=== PATIENT | female | born 1935 | race Caucasian/White ===

== ENCOUNTER → 2018-08-29 10:10 | Outpatient (CLI) | payer MEDICARE, OTHER, SELFPAY | PROVIDERS: PCP Internal Medicine; Visit Provider Internal Medicine | DX: M81.0 Age-related osteoporosis without current pathological fracture (principal); Z78.0 Asymptomatic menopausal state; S32.10XD Unspecified fracture of sacrum, subsequent encounter for fracture with routine healing; Z85.3 Personal history of malignant neoplasm of breast | CPT/HCPCS: 77080 ==

== ENCOUNTER → 2018-11-01 11:13 | Outpatient (CLI) | payer MEDICARE, OTHER, SELFPAY ==
[2018-11-01 12:08] LABS: BUN Creatinine Ratio 33.3 (6-22); Blood Urea Nitrogen 20 mg/dL (7-17); Estimated Glomerular Filt Rate > 60.0 mL/min (>60)
== END ==
PROVIDERS: PCP Internal Medicine; Visit Provider Internal Medicine
DX: M81.0 Age-related osteoporosis without current pathological fracture (principal)
CPT/HCPCS: 36415; 82565; 84520

== ENCOUNTER → 2018-11-02 09:50 | Oncology outpatient (ONC) | payer MEDICARE, OTHER, SELFPAY ==
[2018-11-02 10:30] VITALS: BP 120/55; RESP 18; TEMP 36.7; O2SAT 99
[2018-11-02] MEDS: ZOLEDRONIC ACID 5 MG in SODIUM CHLORIDE 0.9% 100 ML 318.75 ML IV (10:49)
--- NOTE | 2018-11-02 11:36 | PC.NURSE ---
Pt seen in clinic for Reclast infusion. 1xSBA from wheelchair to recliner. A&0x3. Denies chest pain and SOB. Denies N/V. Denies numbness and tingling to extremitiesx3. Speech clear. Pt has history of arthritic pain to UE's and shoulders, controlled with pain meds per pt. Daughter at chair side. Scattered bruising noted to DILCIA's. Pt tolerated infusion w/o incident.
== END ==
PROVIDERS: PCP Internal Medicine; Visit Provider Internal Medicine
DX: M81.0 Age-related osteoporosis without current pathological fracture (principal)
CPT/HCPCS: 96374; J2704; J3010; J3489

== ENCOUNTER → 2019-12-25 10:43 | Outpatient (CLI) | payer MEDICARE, OTHER, SELFPAY ==
[2019-12-25 11:16] VITALS: BP 134/65; PULSE 74; RESP 16; TEMP 36.8; O2SAT 95
[2019-12-25] MEDS: ZOLEDRONIC ACID 5 MG in SODIUM CHLORIDE 0.9% 100 ML 318.75 ML IV (11:48)
== END ==
PROVIDERS: PCP Internal Medicine; Referring Provider Internal Medicine; Visit Provider Internal Medicine
DX: M81.0 Age-related osteoporosis without current pathological fracture (principal)
CPT/HCPCS: 96365; J3489

== ENCOUNTER → 2020-11-19 10:27 | Outpatient (CLI) | payer MEDICARE, OTHER, SELFPAY | PROVIDERS: PCP Internal Medicine; Referring Provider Internal Medicine; Visit Provider Internal Medicine | DX: M81.0 Age-related osteoporosis without current pathological fracture (principal); Z85.3 Personal history of malignant neoplasm of breast; Z78.0 Asymptomatic menopausal state; Z91.81 History of falling | CPT/HCPCS: 77080 ==

== ENCOUNTER → 2021-02-04 12:56 | Outpatient (CLI) | payer MEDICARE, OTHER, SELFPAY | PROVIDERS: Family Provider Internal Medicine; PCP Internal Medicine; Referring Provider Internal Medicine; Visit Provider Family Medicine | DX: L89.153 Pressure ulcer of sacral region, stage 3 (principal); L03.317 Cellulitis of buttock; Z74.09 Other reduced mobility | CPT/HCPCS: 11042; 87070; 87075; 87077; 87186; 87205; 99204; 99213 ==

== ENCOUNTER → 2021-02-04 14:59 | Outpatient (CLI) | payer MEDICARE, OTHER, SELFPAY ==
[2021-02-04 16:49] LABS: BUN Creatinine Ratio 31.1 (6-22); Blood Urea Nitrogen 19 mg/dL (7-17); Calcium 9.4 mg/dL (8.4-10.2); Carbon Dioxide 30 mmol/L (22-32); Chloride 97 mmol/L (98-107); Estimated Glomerular Filt Rate > 60.0 mL/min (>60); Glucose 94 mg/dL (80-110); HEMOLYSIS < 15 (0-50); Potassium 4.3 mmol/L (3.4-5.1); Sodium 135 mmol/L (137-145)
== END ==
PROVIDERS: Family Provider Internal Medicine; PCP Internal Medicine; Referring Provider Internal Medicine; Visit Provider Internal Medicine
DX: I50.31 Acute diastolic (congestive) heart failure (principal)
CPT/HCPCS: 36415; 80048

== ENCOUNTER → 2021-02-11 15:03 | Outpatient (CLI) | payer MEDICARE, OTHER, SELFPAY | PROVIDERS: Family Provider Internal Medicine; PCP Internal Medicine; Referring Provider Internal Medicine; Visit Provider Nurse Practitioner Family | DX: L89.150 Pressure ulcer of sacral region, unstageable (principal); L03.317 Cellulitis of buttock; Z74.09 Other reduced mobility | CPT/HCPCS: 99213; 99214 ==

== ENCOUNTER → 2021-02-16 15:56 | Outpatient (CLI) | payer MEDICARE, OTHER, SELFPAY ==
--- NOTE | 2021-02-16 16:00 | DI.RAD.S_ITS ---
PROCEDURE: XR CHEST 2V INDICATIONS: CHRONIC HEART FAILURE TECHNIQUE: 2 views of the chest were acquired. COMPARISON: [facility], , CHEST 1 VIEW, 10/21/2017, 14:00. [facility], , CHEST 2 VIEW, 01/17/2013, 18:52. FINDINGS: Surgical changes and devices: Pacemaking device and dual chamber leads, multiple surgical clips over the upper left chest wall.. Lungs and pleura: Lungs are abnormal, with pulmonary hyperexpansion, bilateral pleural effusions, alveolar infiltration suggestive of cardiogenic pulmonary edema, and no visualized mass.. No pleural effusions or pneumothorax. Mediastinum: Mediastinal contours are normal. Heart size is globally enlarged, moderately.. Bones and chest wall: No suspicious bony abnormalities. Soft tissues appear unremarkable. IMPRESSION: COPD, CHF, subpulmonic bilateral moderate pleural effusions. No definite mass. Dual chamber cardiac pacemaking device and what appears to be an expandable cardiac valve annulus. These all were previously present 10/21/17. Dictated by: Naseem Lay M.D. on 02/16/2021 at 17:20 Approved by: Naseem Lay M.D. on 02/16/2021 at 17:22
== END ==
PROVIDERS: Family Provider Internal Medicine; PCP Internal Medicine; Referring Provider Internal Medicine; Visit Provider Internal Medicine
DX: I50.32 Chronic diastolic (congestive) heart failure (principal); J44.9 Chronic obstructive pulmonary disease, unspecified; J90 Pleural effusion, not elsewhere classified; Z95.0 Presence of cardiac pacemaker
CPT/HCPCS: 71046; 80048; 83880; 85025

== ENCOUNTER → 2021-02-16 19:16 | Outpatient (ROUT) | payer MEDICARE, OTHER, SELFPAY ==
[2021-02-16 19:35] LABS: Add Manual Diff / Slide Review NO; Basophils Absolute Auto 100 /uL (0-100); Basophils Percent Auto 0.8 % (0-2); Eosinophils Absolute Auto 0 /uL (0-450); Eosinophils Percent Auto 0.4 % (2-4); Hematocrit 32.2 % (36-46); Hemoglobin 10.4 g/dL (12.0-16.0); Lymphocytes Absolute Auto 800 /uL (1100-4500); Lymphocytes Percent Auto 8.6 % (25-40); Mean Corpuscular HGB Conc 32.2 % (30-36); Mean Corpuscular Hemoglobin 26.4 PG (26-34); Monocytes Absolute Auto 500 /uL (0-900); Monocytes Percent Auto 5.5 % (3-14); Neutrophils Absolute Auto 7800 /uL (1500-7000); Neutrophils Percent Auto 84.7 % (50-75); Platelet Count 269 X10^3/uL (150-400); Red Blood Cell Count 3.93 X10^6/uL (4.0-5.2); Red Cell Distribution Width 17.7 % (11.6-14.8); White Blood Cell Count 9.2 X10^3/uL (4.5-11.0)
[2021-02-16 19:50] LABS: BUN Creatinine Ratio 38.1 (6-22); Blood Urea Nitrogen 24 mg/dL (7-17); Calcium 9.6 mg/dL (8.4-10.2); Carbon Dioxide 30 mmol/L (22-32); Chloride 96 mmol/L (98-107); Estimated Glomerular Filt Rate > 60.0 mL/min (>60); Glucose 104 mg/dL (80-110); HEMOLYSIS 37 (0-50); Potassium 4.4 mmol/L (3.4-5.1); Sodium 134 mmol/L (137-145)
[2021-02-16 19:55] LABS: NT-proBNP (BNP-Adult 18+) 18800 pg/mL (<450)
== END ==
PROVIDERS: Family Provider Internal Medicine; PCP Internal Medicine; Visit Provider Internal Medicine
DX: I50.32 Chronic diastolic (congestive) heart failure (principal)
CPT/HCPCS: 80048; 83880; 85025

== ENCOUNTER → 2021-02-18 15:07 | Outpatient (CLI) | payer MEDICARE, OTHER, SELFPAY ==
[2021-02-18 15:34] LABS: COVID19 -Nasal RAPID Negative (Negative)
== END ==
PROVIDERS: Family Provider Internal Medicine; PCP Internal Medicine; Visit Provider Specialist
DX: L89.314 Pressure ulcer of right buttock, stage 4 (principal); Z20.822 Contact with and (suspected) exposure to COVID-19
CPT/HCPCS: 87635; 99214

== ENCOUNTER 2021-02-19 13:29 | Day surgery (SDC) | payer MEDICARE, OTHER, SELFPAY ==
[2021-02-19] VITALS (9 sets, daily range): BP systolic 92–120; BP diastolic 36–57; PULSE 69–78; RESP 10–94; TEMP 36.2–37.1; O2SAT 14–98; BMI 19.8
--- NOTE | 2021-02-19 14:31 | SUR.PREOP ---
Pt with O2 sat 79-85% on RA on admit. No SOB. States she has O2 3L NC at home at night that she has been wearing during the day due to low O2. Placed on 3L NC O2 and O2 sat up to 98%.
[2021-02-19] MEDS: LACTATED RINGERS 1,000 ML 42 ML IV (14:53)
--- NOTE | 2021-02-19 15:07 | SUR.PREOP ---
Dr Malik called and notified that patient took her Eliquist last night. No new orders.
--- NOTE | 2021-02-19 15:37 | PM.PREOP ---
Pre-operative Note COVID-19 COVID-19 status: Negative Result date/Date tested (Pos, Neg/Pending): 02/18/21 Interval Note History & Physical reviewed/Exam performed by Physician: Yes Changes to H&P: Yes H&P completed within 30 days and has changed as indicated here:: Patient took her Eliquis last night despite being instructed not to. It should not interfere with this minor procedure.
--- NOTE | 2021-02-19 16:13 | SUR.OPER ---
Left Lateral on padded OR bed, head on pillow, bottom leg bent with gel pad under knee to foot, upper leg straight and supported with pillows. Upper arm supported by pillows and secured over bottom arm to padded arm board. Gel pad also under left arm, Safety belt at upper torso, tape over blanket at lower legs.
[2021-02-19] MEDS: BUPIVACAINE 0.5% (PF) VIAL 30 ML INJ (16:20)
--- NOTE | 2021-02-19 16:36 | PM.OP.1 ---
Operative Date/Time/Diagnoses Date of procedure: 02/19/21 Time of procedure: 16:37 Pre-op diagnosis: Decubitus right buttock Post-op diagnosis: same (Decubitus extends up to nearly the sacrum. Measures 5 x 4 cm and included skin subcutaneous fat muscle fascia and small amount of muscle.) Procedure & Clinicians Procedure: Debridement of decubitus ulcer Same procedure as scheduled: Yes Indications: Patient developed a decubitus ulcer at home. She is brought in for surgical debridement. Surgeon: Marcos Malik Click Yes if Unassisted: Yes Anesthesia Type: MAC +/- Operative Notes Findings: Debrided necrotic tissue down to healthy viable looking tissue. Prosthetic devices, grafts, tissues, transplants, or devices: None Estimated Blood Loss (mL): 5 Blood products transfused: none Procedure in detail: Patient was placed left lateral decubitus position with appropriate padding and was taped into place. She underwent monitored anesthesia care. After prepping and draping local anesthetic was infiltrated in field block fashion around the wound. The wound was then debrided with a knife I cut out skin subcutaneous fat and portions of fashion muscle there were necrotic. Cautery was used to control bleeding. A portion of a 4 by for soaked in 0.5% Marcaine was placed in the wound and covered with a foam dressing. Patient was taken to the recovery area in good condition. Complications: none Post-operative Condition: stable Disposition: PACU
== END 2021-02-19 17:27 | disposition home or self-care (01) ==
PROVIDERS: Family Provider Internal Medicine; PCP Internal Medicine; Referring Provider Specialist; Visit Provider Specialist
PROC: (CPT 11043; principal; 2021-02-19 16:00)
DX: L89.314 Pressure ulcer of right buttock, stage 4 (principal); Z95.0 Presence of cardiac pacemaker; I25.10 Atherosclerotic heart disease of native coronary artery without angina pectoris; I11.0 Hypertensive heart disease with heart failure; I50.30 Unspecified diastolic (congestive) heart failure; J90 Pleural effusion, not elsewhere classified
CPT/HCPCS: 11043; J2704; J3010

== ENCOUNTER → 2021-02-25 11:58 | Outpatient (CLI) | payer MEDICARE, OTHER, SELFPAY | PROVIDERS: Family Provider Internal Medicine; PCP Internal Medicine; Referring Provider Internal Medicine; Visit Provider Family Medicine | DX: L89.154 Pressure ulcer of sacral region, stage 4 (principal); L08.9 Local infection of the skin and subcutaneous tissue, unspecified; Z74.09 Other reduced mobility; E46 Unspecified protein-calorie malnutrition | CPT/HCPCS: 11043; 11046; 87070; 87075; 87076; 87077; 87147; 87186; 87205; 99214 ==

== ENCOUNTER → 2021-02-26 13:08 | Outpatient (ROUT) | payer MEDICARE, OTHER, SELFPAY ==
[2021-02-26 13:21] LABS: BUN Creatinine Ratio 38.3 (6-22); Blood Urea Nitrogen 36 mg/dL (7-17); Calcium 9.8 mg/dL (8.4-10.2); Carbon Dioxide 35 mmol/L (22-32); Chloride 89 mmol/L (98-107); Estimated Glomerular Filt Rate 56.6 mL/min (>60); Glucose 109 mg/dL (80-110); HEMOLYSIS < 15 (0-50); Potassium 3.7 mmol/L (3.4-5.1); Sodium 132 mmol/L (137-145)
[2021-02-26 13:30] LABS: NT-proBNP (BNP-Adult 18+) 27800 pg/mL (<450)
== END ==
PROVIDERS: Family Provider Internal Medicine; PCP Internal Medicine; Visit Provider Internal Medicine
DX: I50.31 Acute diastolic (congestive) heart failure (principal)
CPT/HCPCS: 80048; 83880

== ENCOUNTER 2021-03-01 15:05 | Inpatient (IN) | payer MEDICARE, OTHER, SELFPAY ==
[2021-03-01] VITALS (45 sets, daily range): BP systolic 73–108; BP diastolic 38–55; PULSE 69–77; RESP 10–32; TEMP 36.3–36.4; O2SAT 82–99; BMI 19.7
--- NOTE | 2021-03-01 15:26 | ED.WOUNDLAC ---
HPI - Wound/Laceration General Chief Complaint: Wound/Laceration Stated Complaint: INFECTED BED SORE Time Seen by Provider: 03/01/21 15:15 Source: family Mode of arrival: Wheelchair Limitations: no limitations History of Present Illness HPI narrative: Patient is an 85-year-old female. On February 19 patient had a surgical debridement of a sacral wound from an infected decubitus ulcer. Was not placed on antibiotics. Was sent home with wet-to-dry dressings. Has followed up with wound care since that time. A couple days after the surgery the patient and her daughter stated that the wound seemed to worsen. There was more pain. No fevers. Had a foul-smelling discharge. Wound care evaluated the patient in the was a small amount of debridement done at that time. Cultures were obtained. She was started on Levaquin. Wound cultures returned today showing multiple different pathogens. The Enterobacter and Staph aureus were both susceptible to Levaquin. There was also a Clostridium and peptoniphilus that did not have sensitivities performed. Patient was contacted by the wound care clinic informed come to the emergency department for further evaluation. Related Data Home Medications Medication Instructions Recorded Confirmed duloxetine 20 mg PO QDAY #0 10/20/17 02/19/21 sotalol [Betapace] 120 mg PO BID #0 10/20/17 02/19/21 apixaban 5 mg tablet 5 mg PO BID 02/18/21 02/19/21 aspirin 81 mg tablet,delayed 81 mg PO DAILY 02/18/21 02/19/21 release gabapentin 300 mg capsule 300 mg PO BID 02/18/21 02/19/21 torsemide 10 mg tablet 10 mg PO DAILY 02/18/21 02/19/21 oxycodone 10 mg PO BID 02/19/21 02/19/21 pantoprazole 40 mg PO DAILY 02/19/21 02/19/21 Previous Rx's Medication Instructions Recorded oxycodone 5 mg PO QIDP PRN #30 tab 10/25/17 Allergies Allergy/AdvReac Type Severity Reaction Status Date / Time No Known Drug Allergies Allergy Verified 03/01/21 15:22 Review of Systems Constitutional Constitutional: Denies fever(s) Musculoskeletal Comments: Sacral pain over the area of the ulcer Integumentary/Breasts Comments: Right sacral decubitus ulcer that is draining material Hematologic/Lymphatic On Anticoagulants: Yes Allergic/Immunologic Allergic/Immunologic: Denies urticaria Patient History Medical History Arthritis Heart failure Surgical History History of hip replacement Hx of hysterectomy Hx of mastectomy Social History marital status: unknown household members: none occupational status: previously employed Smoking Status: Never smoker alcohol intake: current Smoking Status: Never smoker alcohol intake frequency: 0-2 drinks per day Substance Use Type: does not use Exam Initial Vital Signs Initial Vital Signs: Vital Signs Temperature 97.6 F 03/01/21 15:17 Pulse Rate 75 03/01/21 15:17 Respiratory Rate 23 03/01/21 15:17 Blood Pressure 96/55 L 03/01/21 15:17 Pulse Oximetry 89 L 03/01/21 15:17 Const General: cooperative and comfortable Limitations: mental status not altered HENMT Head: normal to inspection and normocephalic Mouth: No moist mucous membranes Resp Effort & Inspection: normal respiratory effort Cardio Rate: regular rate Rhythm: regular rhythm GI Palpation: soft Neuro General: patient alert, patient awake and patient oriented x3 Cognition: normal cognition Speech: speech normal Extrem General: capillary refill normal Psych Appearance: grossly normal and well kempt Course Orders Ordered: ED Orders 03/01/21 15:11 Lactate (Lactic Acid) Stat RT Consult Eval and Treat Now 03/01/21 15:36 Consult to General Surgery Stat 03/01/21 15:45 Complete Blood Count AUTO DIFF Stat Comprehensive Metabolic Panel Stat Lipase Stat Partial Thromboplastin Time Stat Procalcitonin Stat Prothrombin Time INR Stat 03/01/21 15:59 Blood Culture Stat 03/01/21 16:20 COVID19 - ADMIT ([employer] swab/PCR) Stat 03/01/21 16:34 EKG-12 Lead Stat Cefazolin Sodium (Cefazolin 1 Gm Vial) 2 gm IV Q12H [facility] Sodium Chloride (Normal Saline 0.9%) 1,000 mls @ 125 mls/hr IV BOLUS ONE Stop: 03/01/21 23:16 Last Infusion: 03/01/21 17:44 Dose: 0 mls/hr Documented by: Infusion: 03/01/21 17:09 Dose: 125 mls/hr Documented by: Admin: 03/01/21 16:45 Dose: 1,000 mls/hr Documented by: BC Piperacillin Sod/Tazobactam (Sod 3.375 gm/ Sodium Chloride) 100 mls @ 25 mls/hr IV Q8H [facility] Clindamycin Phosphate (Cleocin) 900 mg in 50 mls @ 50 mls/hr IV Q8H [facility] Discontinued Medications Cefazolin Sodium (Cefazolin 1 Gm Vial) 2 gm IV Q8H [facility] Last Admin: 03/01/21 18:20 Dose: Not Given Documented by: BC Metronidazole (Flagyl) 500 mg in 100 mls @ 100 mls/hr IV NOW ONE Stop: 03/01/21 17:11 Last Infusion: 03/01/21 17:44 Dose: 0 mls/hr Documented by: Admin: 03/01/21 16:32 Dose: 100 mls/hr Documented by: SHANTEL Clindamycin Phosphate (Cleocin) 900 mg in 50 mls @ 50 mls/hr IV NOW ONE Stop: 03/01/21 17:12 Last Infusion: 03/01/21 17:44 Dose: 0 mls/hr Documented by: Admin: 03/01/21 16:32 Dose: 50 mls/hr Documented by: SHANTEL Clindamycin Phosphate (Cleocin) 900 mg in 50 mls @ 50 mls/hr IV Q8H [facility] Last Admin: 03/01/21 18:20 Dose: Not Given Documented by: BC Vital Signs Vital signs: Vital Signs - 8 hr 03/01/21 15:17 03/01/21 15:35 03/01/21 15:40 Temperature 97.6 F Pulse Rate 75 69 70 Respiratory Rate 23 25 H 20 Blood Pressure 96/55 L Pulse Oximetry 89 L 89 L 86 L 03/01/21 15:50 03/01/21 16:00 03/01/21 16:10 Temperature Pulse Rate 69 69 72 Respiratory Rate 17 26 H 17 Blood Pressure 83/47 L Pulse Oximetry 86 L 91 85 L 03/01/21 16:20 03/01/21 16:29 03/01/21 16:30 Temperature Pulse Rate 69 70 70 Respiratory Rate 12 17 17 Blood Pressure 86/51 L 77/41 L Pulse Oximetry 91 92 93 MDM - Wound/Laceration Medical Records Attestation: I reviewed the patient's medical records. Lab Data Attestation: I reviewed the patient's lab results. Result diagrams: 03/01/21 15:45 03/01/21 15:45 Labs: Lab Results 03/01/21 03/01/21 03/01/21 Range/Units 15:11 15:45 15:45 WBC 9.1 (4.5-11.0) X10^3/uL RBC 3.92 L (4.0-5.2) X10^6/uL Hgb 10.0 L (12.0-16.0) g/dL Hct 31.4 L (36-46) % MCV 80.2 (80-100) fL MCH 25.7 L (26-34) PG MCHC 32.0 (30-36) % RDW 18.2 H (11.6-14.8) % Plt Count 222 (150-400) X10^3/uL Neut % (Auto) 86.6 H (50-75) % Lymph % (Auto) 6.8 L (25-40) % [place] % (Auto) 6.0 (3-14) % Eos % (Auto) 0.2 L (2-4) % Baso % (Auto) 0.4 (0-2) % Neut # (Auto) 7900 H (7602-3509) /uL Lymph # (Auto) 600 L (6405-1325) /uL [place] # (Auto) 600 (0-900) /uL Eos # (Auto) 0 (0-450) /uL Baso # (Auto) 0 (0-100) /uL PT 31.5 H (10.1-12.7) SECONDS INR 2.7 H (0.9-1.3) APTT 37 H (26.4-36.2) SECONDS Sodium (137-145) mmol/L Potassium (3.4-5.1) mmol/L Chloride (98-107) mmol/L Carbon Dioxide (22-32) mmol/L BUN (7-17) mg/dL Creatinine (0.52-1.04) mg/dL Estimated GFR (>60) mL/min BUN/Creatinine Ratio (6-22) Glucose (80-110) mg/dL Lactate 1.5 (0.7-2.1) mmol/L Calcium (8.4-10.2) mg/dL Total Bilirubin (0.2-1.3) mg/dL AST (14-36) IU/L ALT (<35) IU/L Alkaline Phosphatase (38-126) U/L Total Protein (6.3-8.2) g/dL Albumin (3.5-5.0) g/dL Globulin (1.7-4.1) g/dL Albumin/Globulin Ratio (1.0-2.8) Lipase (23-300) U/L Procalcitonin (<0.5) ng/mL SARS-CoV-2 (PCR) (Negative) 03/01/21 03/01/21 Range/Units 15:45 16:20 WBC (4.5-11.0) X10^3/uL RBC (4.0-5.2) X10^6/uL Hgb (12.0-16.0) g/dL Hct (36-46) % MCV (80-100) fL MCH (26-34) PG MCHC (30-36) % RDW (11.6-14.8) % Plt Count (150-400) X10^3/uL Neut % (Auto) (50-75) % Lymph % (Auto) (25-40) % [place] % (Auto) (3-14) % Eos % (Auto) (2-4) % Baso % (Auto) (0-2) % Neut # (Auto) (8334-0667) /uL Lymph # (Auto) (6135-2591) /uL [place] # (Auto) (0-900) /uL Eos # (Auto) (0-450) /uL Baso # (Auto) (0-100) /uL PT (10.1-12.7) SECONDS INR (0.9-1.3) APTT (26.4-36.2) SECONDS Sodium 129 L (137-145) mmol/L Potassium 4.5 (3.4-5.1) mmol/L Chloride 87 L (98-107) mmol/L Carbon Dioxide 35 H (22-32) mmol/L BUN 55 H (7-17) mg/dL Creatinine 1.86 H (0.52-1.04) mg/dL Estimated GFR 25.7 L (>60) mL/min BUN/Creatinine Ratio 29.6 H (6-22) Glucose 94 (80-110) mg/dL Lactate (0.7-2.1) mmol/L Calcium 9.5 (8.4-10.2) mg/dL Total Bilirubin 1.2 (0.2-1.3) mg/dL AST 65 H (14-36) IU/L ALT 36 H (<35) IU/L Alkaline Phosphatase 87 (38-126) U/L Total Protein 6.7 (6.3-8.2) g/dL Albumin 3.4 L (3.5-5.0) g/dL Globulin 3.3 (1.7-4.1) g/dL Albumin/Globulin Ratio 1.0 (1.0-2.8) Lipase 45 (23-300) U/L Procalcitonin 0.41 (<0.5) ng/mL SARS-CoV-2 (PCR) Negative (Negative) ECG Data Attestation: I personally reviewed and interpreted this ECG as follows: Prior ECG tracings: not available for review Interpretation: Paced rhythm Rate is 71 MDM Narrative Medical decision making narrative: Patient is alert oriented x3. GCS of 15. Is currently on Levaquin which should take care of some of the positive wound culture bacteria. Wound care recommended Victor Manuel Lang. Patient was seen by General surgery here in the emergency department and asked the patient be admitted by Internal Medicine for debridement tomorrow. Also discussed the case with Dr. Valdes with Internal Medicine who will admit for further evaluation. Patient did have some episodes of hypotension with a systolic blood pressure in the 70s and a mean arterial pressure around 60. Patient was not tachycardic. Does not have a leukocytosis but does have a left shift. She does have a bump in her creatinine. Her lactate is negative. Procalcitonin is negative. She is mentating fine. I suspect that her hypotension is more related to under resuscitation with fluids rather than a sepsis. She was given antibiotics. Blood cultures were obtained. We will admit for further evaluation and treatment. Discharge Plan Departure Patient Disposition: Admitted As Inpatient Clinical Impression: Decubitus ulcer, stage 4 with infection Admit Date/Time: 03/01/21 16:38 Admit Provider: Noah Valdes
[2021-03-01 15:52] LABS: Add Manual Diff / Slide Review NO; Basophils Absolute Auto 0 /uL (0-100); Basophils Percent Auto 0.4 % (0-2); Eosinophils Absolute Auto 0 /uL (0-450); Eosinophils Percent Auto 0.2 % (2-4); Hematocrit 31.4 % (36-46); Lymphocytes Absolute Auto 600 /uL (1100-4500); Lymphocytes Percent Auto 6.8 % (25-40); Mean Corpuscular Hemoglobin 25.7 PG (26-34); Mean Corpuscular Volume 80.2 fL (80-100); Monocytes Absolute Auto 600 /uL (0-900); Neutrophils Absolute Auto 7900 /uL (1500-7000); Neutrophils Percent Auto 86.6 % (50-75); Platelet Count 222 X10^3/uL (150-400); Red Blood Cell Count 3.92 X10^6/uL (4.0-5.2); Red Cell Distribution Width 18.2 % (11.6-14.8); White Blood Cell Count 9.1 X10^3/uL (4.5-11.0)
[2021-03-01 15:59] LABS: INR 2.7 (0.9-1.3); Prothrombin Time 31.5 SECONDS (10.1-12.7)
[2021-03-01 16:02] LABS: PTT Partial Thromboplastin Tim 37 SECONDS (26.4-36.2)
[2021-03-01 16:03] LABS: Alanine Aminotransferase 36 IU/L (<35); Albumin 3.4 g/dL (3.5-5.0); Alkaline Phosphatase 87 U/L (38-126); Aspartate Aminotransferase 65 IU/L (14-36); BUN Creatinine Ratio 29.6 (6-22); Bilirubin Total 1.2 mg/dL (0.2-1.3); Blood Urea Nitrogen 55 mg/dL (7-17); Calcium 9.5 mg/dL (8.4-10.2); Carbon Dioxide 35 mmol/L (22-32); Chloride 87 mmol/L (98-107); Estimated Glomerular Filt Rate 25.7 mL/min (>60); Globulin 3.3 g/dL (1.7-4.1); Glucose 94 mg/dL (80-110); HEMOLYSIS < 15 (0-50); Lipase 45 U/L (23-300); Potassium 4.5 mmol/L (3.4-5.1); Sodium 129 mmol/L (137-145); Total Protein 6.7 g/dL (6.3-8.2)
[2021-03-01 16:09] LABS: Lactate (Lactic Acid) 1.5 mmol/L (0.7-2.1)
[2021-03-01 16:20] LABS: Procalcitonin 0.41 ng/mL (<0.5)
[2021-03-01] MEDS: CLINDAMYCIN 900 MG/50 ML PIGGYBACK 50 MG IV ×2 (16:32→23:50)
[2021-03-01] MEDS: metroNIDAZOLE 500 MG/100 ML PIGGYBACK 100 MG IV (16:32)
[2021-03-01] MEDS: SODIUM CHLORIDE 0.9% 1,000 ML 1000 ML IV ×2 (16:45→22:45)
--- NOTE | 2021-03-01 16:50 | PM.CN ---
History of Present Illness Consult details Date Patient Seen: 03/01/21 Time Patient Seen: 19:02 Chief complaint: INFECTED BED SORE Narrative: 85-year-old female seen in the emergency room in consultation for a decubitus ulcer. Debridement of the decubitus ulcer was performed 02/19/2021. The wound was not progressing well following surgery. Cultures obtained 4 days ago but resulting today demonstrate multiple species including Clostridium, staph aureus and Enterobacter. She is admitted to the hospital today for IV antibiotic therapy and likely repeat debridement. Her buttock is uncomfortable but not frankly changed from her baseline. The operative note describes a 5 x 4 cm wound extending to the depth of the sacrum. At admission WBC 9, hematocrit 31 INR 2.7, sodium 129 creatinine 1.9 from baseline 0.6. Meds Home Medications and Allergies Home Medications Medication Instructions Recorded Confirmed Type duloxetine 20 mg PO QDAY #0 10/20/17 02/19/21 History sotalol [Betapace] 120 mg PO BID #0 10/20/17 02/19/21 History oxycodone 5 mg PO QIDP PRN #30 tab 10/25/17 02/19/21 Rx apixaban 5 mg tablet 5 mg PO BID 02/18/21 02/19/21 History aspirin 81 mg tablet,delayed 81 mg PO DAILY 02/18/21 02/19/21 History release gabapentin 300 mg capsule 300 mg PO BID 02/18/21 02/19/21 History torsemide 10 mg tablet 10 mg PO DAILY 02/18/21 02/19/21 History oxycodone 10 mg PO BID 02/19/21 02/19/21 History pantoprazole 40 mg PO DAILY 02/19/21 02/19/21 History Allergies Allergy/AdvReac Type Severity Reaction Status Date / Time No Known Drug Allergies Allergy Verified 03/01/21 15:22 Review of Systems Review of Systems ROS: Yes unobtainable due to mental status (Dementia) Exam Vital Signs (past 8 hours): - 03/01/21 15:17 Temperature 97.6 F Pulse Rate 75 Respiratory Rate 23 Blood Pressure 96/55 L Pulse Oximetry 89 L Oxygen Delivery Method Nasal Cannula Oxygen Flow Rate 3 Narrative Exam Narrative: GENERAL frail elderly female, no acute distress HEENT-no scleral icterus, hearing intact NECK-no JVD, trachea midline CVS- regular rate, mild peripheral edema RESP-unlabored respiratory effort, no audible wheezing GI-soft, nontender nondistended MSK-no cyanosis or clubbing, extremities without deformity SKIN-5 cm sacral pain wound extending to the depth of the sacrum. There is sloughing material within the base of the wound. Mild surrounding erythema no warmth NEURO-alert, no focal deficits PYSCH-Appropriate mood and affect Objective Labs Result Diagrams: 03/01/21 15:45 03/01/21 15:45 Labs: Laboratory Results - last 24 hr 03/01/21 03/01/21 03/01/21 15:11 15:45 15:45 WBC 9.1 RBC 3.92 L Hgb 10.0 L Hct 31.4 L MCV 80.2 MCH 25.7 L MCHC 32.0 RDW 18.2 H Plt Count 222 Neut % (Auto) 86.6 H Lymph % (Auto) 6.8 L [place] % (Auto) 6.0 Eos % (Auto) 0.2 L Baso % (Auto) 0.4 Neut # (Auto) 7900 H Lymph # (Auto) 600 L [place] # (Auto) 600 Eos # (Auto) 0 Baso # (Auto) 0 PT 31.5 H INR 2.7 H APTT 37 H Sodium Potassium Chloride Carbon Dioxide BUN Creatinine Estimated GFR BUN/Creatinine Ratio Glucose Lactate 1.5 Calcium Total Bilirubin AST ALT Alkaline Phosphatase Total Protein Albumin Globulin Albumin/Globulin Ratio Lipase Procalcitonin 03/01/21 15:45 WBC RBC Hgb Hct MCV MCH MCHC RDW Plt Count Neut % (Auto) Lymph % (Auto) [place] % (Auto) Eos % (Auto) Baso % (Auto) Neut # (Auto) Lymph # (Auto) [place] # (Auto) Eos # (Auto) Baso # (Auto) PT INR APTT Sodium 129 L Potassium 4.5 Chloride 87 L Carbon Dioxide 35 H BUN 55 H Creatinine 1.86 H Estimated GFR 25.7 L BUN/Creatinine Ratio 29.6 H Glucose 94 Lactate Calcium 9.5 Total Bilirubin 1.2 AST 65 H ALT 36 H Alkaline Phosphatase 87 Total Protein 6.7 Albumin 3.4 L Globulin 3.3 Albumin/Globulin Ratio 1.0 Lipase 45 Procalcitonin 0.41 Assessment & Plan Assessment & Plan narrative: 85F with an infected decubitus ulcer, no systemic toxicity. Cultures from 4 days ago demonstrate multiple species including clostridium, staph and Enterobacter. Very low suspicion for necrotizing fasciitis. -NPO -Antibiotics -hold Eliquis -Debridement of decubitus ulcer tomorrow 03/02 in OR
[2021-03-01 17:18] LABS: COVID19 - ADMIT (NP swab/PCR) Negative (Negative)
--- NOTE | 2021-03-01 17:48 | PC.NURSE ---
Patient remained hypotensive after one 500ml NS bolus. Verbal order recieved for additional 500ml NS bolus.
--- NOTE | 2021-03-01 19:08 | DI.ECHO.S_ITS ---
[place] [facility]---------+ [facility] +---------+ : : [address] : [place] : : : : [id number] : : : : Phone: [phone] Echocardiogram Report + + :Name: MONTRELL RAMAN Study Date: 03/02/2021 Height: 66 in : :[facility] ReadingLocation: Weight: 122 lb: : Gender: Female BSA: 1.6 m2 : :: 1935 Age: 85 yrs BP: 94/48 mmHg: :Reason For Study: CONGESTIVE HEART FAILURE : :Ordering Physician: ADEEL, : :TENA Performed By: Nahomi Rivas : :Referring: TENA DENIS : + + Interpretation Summary The left ventricle is normal in size and wall thickness. The ejection fraction is estimated to be 50-55%. Left ventricular function has slightly worsened compared to the previous exam. The right ventricle is mildly dilated. The right ventricular systolic function is normal. The right ventricular systolic pressure is estimated to be at least 67 mmHg based on an estimated right atrial pressure of 15 mm Hg. Compared to the prior echo exam, there has been an increase in the severity of pulmonary hypertension. There is a prosthetic aortic valve. The peak aortic velocity is 4.3 m/sec. The peak aortic velocity on the previous exam was 3.57 m/sec. There is mild to moderate aortic regurgitation. There is a moderate left-sided pleural effusion. Procedure: A two-dimensional transthoracic echocardiogram with color flow and Doppler was performed in limited views only to assess ejection fraction and aortic valve.. The study quality was technically adequate. Comparison is made with the echocardiogram of 12/18/2020. The heart rate ranged between 56- 72 bpm during the study. Left Ventricle: The left ventricle is normal in size and wall thickness. The ejection fraction is estimated to be 50-55%. Left ventricular function has slightly worsened compared to the previous exam. There are no focal wall motion abnormalities. Right Ventricle: The right ventricle is mildly dilated. The right ventricular systolic function is normal. Atria: The left atrium is moderately dilated. The right atrium is moderate to severely dilated. Aortic Valve: There is a prosthetic aortic valve. The peak aortic velocity is 4.3 m/sec. The peak aortic velocity on the previous exam was 3.57 m/sec. The aortic valve mean gradient is 34.1 mmHg. There is mild to moderate aortic regurgitation. Tricuspid Valve: The right ventricular systolic pressure is estimated to be at least 67 mmHg based on an estimated right atrial pressure of 15 mm Hg. Compared to the prior echo exam, there has been an increase in the severity of pulmonary hypertension. Great Vessels: The IVC is dilated (diameter is greater than 2.1 cm) and it collapses less than 50% with a sniff. This suggests a high right atrial pressure of 15 mm Hg. Pericardium/ Pleura There is no pericardial effusion. There is a moderate left-sided pleural effusion. MMode/2D Measurements & Calculations LVIDd: 5.0 cm LVOT diam: 1.9 cm LVIDs: 3.7 cm FS: 26.4 % IVSd: 0.79 cm LVPWd: 0.95 cm LV sinha. diameter/BSA (cm/m^2): 3.1 LV sys. diameter/BSA (cm/m^2): 2.3 LA A2 area: 22.3 cm2 RA long axis: 4.6 cm LA A4 area: 25.0 cm2 RA area: 20.2 cm2 LA length (vol): 6.2 cm RA vol: 76.2 ml LA vol: 76.9 ml RA : 47.0 ml/m2 LA vol index: 47.5 ml/m2 IVC diam: 2.6 cm RVD1 (basal): 4.0 cm TAPSE: 2.2 cm Doppler Measurements & Calculations Ao V2 max: 434.6 cm/sec LVOT Max Leland: 71.5 cm/sec Ao V2 mean: 341.7 cm/sec LV V1 max P.0 mmHg Ao max P.6 mmHg LV V1 VTI: 16.5 cm Ao mean P.4 mmHg OLIVIA(I,D): 0.48 cm2 Ao V2 VTI: 94.5 cm OLIVIA(V,D): 0.45 cm2 sev ratio: 0.17 OLIVIA indexed to BSA (cm^2/m^2): 0.30 TR max leland: 361.7 cm/sec SV(LVOT): 45.2 ml TR max P.3 mmHg Reading Physician:12:41 PM
[2021-03-01] MEDS: SODIUM CHLORIDE 0.9% 1,000 ML 125 ML IV (19:10)
[2021-03-01 19:29] LABS: HCO3 ABG 34 mmol/L (22-26); PCO2 ABG 47.1 mmHg (35-45); PO2 ABG 91 mmHg (80-100); pH ABG 7.46 (7.35-7.45)
[2021-03-01 19:30] LABS: Fractionated Inspired Oxygen 45; Oxygen Saturation ABG 97 % (95-100); TCO2 ABG 35 mmol/L (21-31)
[2021-03-01] MEDS: OXYCODONE IR 5 MG TABLET PO (20:31)
[2021-03-01] MEDS: PIPERACILLIN/TAZO 3.375 GM in SODIUM CHLORIDE 0.9% 100 ML 25 ML IV (20:33)
[2021-03-01] MEDS: CEFAZOLIN 1 GM VIAL 2 GM IV (20:55)
--- NOTE | 2021-03-01 21:20 | P.HP_ITS ---
History of Present Illness History of Present Illness Date Patient Seen: 03/01/21 Time Patient Seen: 17:20 Chief complaint: INFECTED BED SORE Narrative: Ms. Magaña is an 85W with PMH of CAD s/p stent, diastolic CHF, chronic left pleural effusion, atrial fibrillation s/p PPM, aortic valve stenosis s/p TAVR now with aortic insufficiency, chronic narcotic therapy, bilateral mastectomy and hysterectomy who is coming in with infected sarcal decubitus ulcer. She initially had surgical debridement of this wound on 01/20. She was not on antibiotics. She presented to wound care with worsening pain, draining from the wound and was started on antibiotics with levofloxacin four days ago. She had cultures drawn that showed eventually resulted with multiple bacteria so was notified to come to the hospital. She thinks that her wound since starting antibiotics has somwhat improved, but overall she feels like she lacks appetite and has been weaker than her baseline. In the ED workup was done, she was noted initially to be mildly hypotensive in the 90s, no tachycardia. Labs notable for a normal white count of 9.1 with 86.6 PMNs, lactate normal. She has been on oxygen chronically and was initially on 3L in the ED. She was given clindamycin and flagyl for her wound cultures. In the ED, she did have noted episodes of hypotension with blood pressure in the 70s, she required multiple fluid boluses and consideration was done to place a central line; however blood pressure improved to the 100s and she was mentating and this was not medically necessary. She did have increasing oxygen requirement up to 6L, but when arriving on the floor this was being attempted to be weaned down. Patient History Medical History Arthritis Heart failure Surgical History History of hip replacement Hx of hysterectomy Hx of mastectomy Family & Social History Social History: household members none Safety & Behavioral: Feels Safe in Current Yes Environment Been Physically Hurt or No Threatened By a Person Tobacco & Substance use: Smoking Status Never smoker alcohol intake current alcohol intake frequency 0-2 drinks per day Substance Use Type does not use Meds Home Medications and Allergies Home Medications Medication Instructions Recorded Confirmed Type duloxetine 20 mg PO QDAY #0 10/20/17 02/19/21 History sotalol [Betapace] 120 mg PO BID #0 10/20/17 02/19/21 History oxycodone 5 mg PO QIDP PRN #30 tab 10/25/17 02/19/21 Rx apixaban 5 mg tablet 5 mg PO BID 02/18/21 02/19/21 History aspirin 81 mg tablet,delayed 81 mg PO DAILY 02/18/21 02/19/21 History release gabapentin 300 mg capsule 300 mg PO BID 02/18/21 02/19/21 History torsemide 10 mg tablet 10 mg PO DAILY 02/18/21 02/19/21 History oxycodone 10 mg PO BID 02/19/21 02/19/21 History pantoprazole 40 mg PO DAILY 02/19/21 02/19/21 History Allergies Allergy/AdvReac Type Severity Reaction Status Date / Time No Known Drug Allergies Allergy Verified 03/01/21 15:22 Review of Systems Review of Systems Narrative: 14 systems reviewed and negative aside from what is noted in HPI Exam Vital Signs (past 8 hours): - 03/01/21 15:17 03/01/21 15:35 03/01/21 15:40 Temperature 97.6 F Pulse Rate 75 69 70 Respiratory Rate 23 25 H 20 Blood Pressure 96/55 L Pulse Oximetry 89 L 89 L 86 L 03/01/21 15:50 03/01/21 16:00 03/01/21 16:10 Temperature Pulse Rate 69 69 72 Respiratory Rate 17 26 H 17 Blood Pressure 83/47 L Pulse Oximetry 86 L 91 85 L 03/01/21 16:20 03/01/21 16:29 03/01/21 16:30 Temperature Pulse Rate 69 70 70 Respiratory Rate 12 17 17 Blood Pressure 86/51 L 77/41 L Pulse Oximetry 91 92 93 03/01/21 16:40 03/01/21 16:50 03/01/21 17:00 Temperature Pulse Rate 71 69 69 Respiratory Rate 17 13 18 Blood Pressure 81/46 L 73/40 L Pulse Oximetry 91 95 94 03/01/21 17:05 03/01/21 17:10 03/01/21 17:20 Temperature Pulse Rate 69 71 69 Respiratory Rate 16 17 14 Blood Pressure 74/46 L 78/49 L 77/46 L Pulse Oximetry 94 91 91 03/01/21 17:30 03/01/21 17:40 03/01/21 17:41 Temperature Pulse Rate 69 69 69 Respiratory Rate 20 25 H 21 Blood Pressure 79/49 L 95/54 L Pulse Oximetry 91 93 93 03/01/21 17:50 03/01/21 18:00 03/01/21 18:10 Temperature Pulse Rate 72 77 71 Respiratory Rate 18 32 H 20 Blood Pressure 86/47 L 78/43 L 75/49 L Pulse Oximetry 89 L 89 L 83 L 03/01/21 18:20 03/01/21 18:30 03/01/21 18:31 Temperature Pulse Rate 73 69 70 Respiratory Rate 20 24 28 H Blood Pressure 75/47 L 95/42 L Pulse Oximetry 82 L 84 L 85 L 03/01/21 18:42 03/01/21 18:43 03/01/21 18:50 Temperature Pulse Rate 70 70 69 Respiratory Rate 10 L 19 16 Blood Pressure 102/52 L Pulse Oximetry 90 L 91 92 03/01/21 19:00 03/01/21 19:08 03/01/21 19:10 Temperature Pulse Rate 71 69 69 Respiratory Rate 18 15 12 Blood Pressure 108/54 L Pulse Oximetry 93 93 93 03/01/21 19:20 03/01/21 19:30 03/01/21 19:58 Temperature Pulse Rate 71 69 69 Respiratory Rate 15 15 16 Blood Pressure Pulse Oximetry 92 85 L 94 Fraction of Inspired Oxygen 45 Oxygen Delivery Method High Flow Nasal Cannula Oxygen Flow Rate 6 Narrative Exam Narrative: GEN: chronically ill appearing, frail, no acute distress HEEN: dry mucous membranes, PERRL NECK: no JVD, trachea midline CV: regular rate and rhythm, 2/6 systolic murmur PULM: decreased breath sounds on left, poor air movement ABD: soft, nontender, nondistended, no organomegaly, normal bowel sounds EXT: warm and well perfused, no edema NEURO: awake and alert, moving all extremities PSYCH: pleasant SKIN: 6cm sacral wound with sloughing skin, mild erythema around wound Objective Labs Result Diagrams: 03/01/21 15:45 03/01/21 15:45 Labs: Laboratory Results - last 24 hr 03/01/21 03/01/21 03/01/21 15:11 15:45 15:45 WBC 9.1 RBC 3.92 L Hgb 10.0 L Hct 31.4 L MCV 80.2 MCH 25.7 L MCHC 32.0 RDW 18.2 H Plt Count 222 Neut % (Auto) 86.6 H Lymph % (Auto) 6.8 L Davis % (Auto) 6.0 Eos % (Auto) 0.2 L Baso % (Auto) 0.4 Neut # (Auto) 7900 H Lymph # (Auto) 600 L Davis # (Auto) 600 Eos # (Auto) 0 Baso # (Auto) 0 PT 31.5 H INR 2.7 H APTT 37 H ABG pH ABG pCO2 ABG pO2 ABG HCO3 ABG Total CO2 ABG O2 Saturation ABG Base Excess FiO2 Sodium Potassium Chloride Carbon Dioxide BUN Creatinine Estimated GFR BUN/Creatinine Ratio Glucose Lactate 1.5 Calcium Total Bilirubin AST ALT Alkaline Phosphatase Total Protein Albumin Globulin Albumin/Globulin Ratio Lipase Procalcitonin SARS-CoV-2 (PCR) 03/01/21 03/01/21 03/01/21 15:45 16:20 18:37 WBC RBC Hgb Hct MCV MCH MCHC RDW Plt Count Neut % (Auto) Lymph % (Auto) Davis % (Auto) Eos % (Auto) Baso % (Auto) Neut # (Auto) Lymph # (Auto) Davis # (Auto) Eos # (Auto) Baso # (Auto) PT INR APTT ABG pH 7.46 H ABG pCO2 47.1 H ABG pO2 91 ABG HCO3 34 H ABG Total CO2 35 H ABG O2 Saturation 97 ABG Base Excess 10.0 H FiO2 45 Sodium 129 L Potassium 4.5 Chloride 87 L Carbon Dioxide 35 H BUN 55 H Creatinine 1.86 H Estimated GFR 25.7 L BUN/Creatinine Ratio 29.6 H Glucose 94 Lactate Calcium 9.5 Total Bilirubin 1.2 AST 65 H ALT 36 H Alkaline Phosphatase 87 Total Protein 6.7 Albumin 3.4 L Globulin 3.3 Albumin/Globulin Ratio 1.0 Lipase 45 Procalcitonin 0.41 SARS-CoV-2 (PCR) Negative Assessment & Plan Assessment & Plan narrative: 1. Infected stage 4 sacral ulcer -patient initially hypotensive in ED -WBC ok, lactate ok, no tachycardia indicate likely patient not septic -for now will dose broadly on antibiotics with zosyn to cover enterobacter and peptoniphilus, clindamycin to cover clostridium and staph -initially did get cefazolin for staph, but will dc based on clinda sensitivities -will change antibiotics based on patient becoming clinically stable -follow up blood cultures -appreciate surgical consultation, plan for OR 03/02 -NPO at midnight 2. Hypotension -likely multifactorial -based possibly overdiursed in setting on infection, and poor oral intake -creatinine elevated on arrival, and patient on exam hypovolemic -improved with careful IV boluses 3. Acute on chronic respiratory failure, on 2-3L oxygen at home -respiratory failure secondary to hypoxemia from chronic CHF causing chronic L pleural effusion -hold diuretics for now -careful with IV fluid resuscitation -patient does not want to be intubated -no evidence of pneumonia on imaging 4. Diastolic CHF with CAD, aortic stenosis s/p TAVR with AI, atrial fibrillation s/p PPM -as above patient has pulmonary fluid, but appears dehydrated on exam -given low BP giving gentle fluid but with CHF and AI at risk of worsening pulmonary edema -hold apixaban given plan for surgery 5. JOSÉ ANTONIO -creatinine elevated to 1.84 from 0.9 -patient hypotensive, hypovolemic on exam, sodium of 129, and elevated BUN all consistent with prerenal hypovolemia -will hold torsemide -IVF as above -monitor creatinine daily -avoid nephrotoxins 6. Chronic pain -order PRN oxycodone, but careful with dose given hypotension -hold gabapentin due to JOSÉ ANTONIO IVF: gentle fluid at 100 cc/hr DVT ppx: holding apixaban for surgery DIET: NPO after midnight for surgery CODE: DNR, proxy is sunshine Moreira [facility] - Admit I confirm the patient?s Advance Care Plan is present, Code status is documented, Surrogate decision maker is in patient?s record [If Yes, STOP here]: Yes
[2021-03-01] MEDS: ONDANSETRON 4 MG/2 ML INJ IV (21:56)
[2021-03-02] VITALS (114 sets, daily range): BP systolic 80–135; BP diastolic 40–64; PULSE 69–78; RESP 7–26; TEMP 36.1–37.1; O2SAT 72–100
[2021-03-02] MEDS: NOREPINEPHRINE 4 MG in DEXTROSE 5% IN WATER 250 ML 7.62 ML IV (00:20)
[2021-03-02] MEDS: PIPERACILLIN/TAZO 3.375 GM in SODIUM CHLORIDE 0.9% 100 ML 25 ML IV ×3 (02:23→20:39)
--- NOTE | 2021-03-02 03:22 | PC.NURSE ---
Addendum entered by Monique Mercado R.N. 03/02/21 06:40: Patient was able to sleep overnight, turned Q2h per her request, prefers to be on Lt side most of the time. Levophed gtt at 2mcg/min all night to keep MAP >65, see vital trends. Original Note: Admit Note-Patient brought to ICU room 230 at 1945 via stretcher, slider board required to transfer to bed. A/O x3m [place] and bit forgetful, daughter Iris is with her. Initial BP 93/49(68), A-paced 70s, HFNC started at 6L, but able to quickly titrated down to 2-3L, SpO2 >90%, lung sounds dim in LLL, otherwise CTA, denies shortness of breath. Afebrile. 5mg PO oxycodone given per prn for pain to right decubitus wound. Patient says wound was treated by wound clinic today. See assessment notes. Abx given as scheduled, see Emar.
[2021-03-02] MEDS: OXYCODONE IR 5 MG TABLET PO ×4 (04:30→21:53)
[2021-03-02 04:46] LABS: Add Manual Diff / Slide Review NO; Basophils Absolute Auto 0 /uL (0-100); Basophils Percent Auto 0.5 % (0-2); Eosinophils Absolute Auto 0 /uL (0-450); Eosinophils Percent Auto 0.1 % (2-4); Hemoglobin 7.4 g/dL (12.0-16.0); Lymphocytes Absolute Auto 600 /uL (1100-4500); Lymphocytes Percent Auto 8.5 % (25-40); Mean Corpuscular HGB Conc 32.1 % (30-36); Mean Corpuscular Hemoglobin 25.9 PG (26-34); Mean Corpuscular Volume 80.7 fL (80-100); Monocytes Absolute Auto 500 /uL (0-900); Monocytes Percent Auto 7.6 % (3-14); Neutrophils Absolute Auto 5900 /uL (1500-7000); Neutrophils Percent Auto 83.3 % (50-75); Platelet Count 171 X10^3/uL (150-400); Red Blood Cell Count 2.84 X10^6/uL (4.0-5.2); Red Cell Distribution Width 18.3 % (11.6-14.8); White Blood Cell Count 7.1 X10^3/uL (4.5-11.0)
[2021-03-02 04:57] LABS: BUN Creatinine Ratio 32.5 (6-22); Blood Urea Nitrogen 40 mg/dL (7-17); Carbon Dioxide 24 mmol/L (22-32); Chloride 107 mmol/L (98-107); Estimated Glomerular Filt Rate 41.5 mL/min (>60); Glucose 76 mg/dL (80-110); HEMOLYSIS < 15 (0-50); Potassium 3.4 mmol/L (3.4-5.1); Sodium 138 mmol/L (137-145)
[2021-03-02 05:06] LABS: Calcium 6.5 mg/dL (8.4-10.2)
[2021-03-02] MEDS: SODIUM CHLORIDE 0.9% 1,000 ML 100 ML IV (05:59)
[2021-03-02] MEDS: CALCIUM GLUCONATE 4.65 MEQ in SODIUM CHLORIDE 0.9% 50 ML 180 ML IV (07:45)
[2021-03-02] MEDS: CLINDAMYCIN 900 MG/50 ML PIGGYBACK 50 MG IV ×2 (08:25→16:14)
--- NOTE | 2021-03-02 10:53 | DI.RAD.S_ITS ---
PROCEDURE: XR CHEST FOR PICC 1V INDICATIONS: confirm PICC placement COMPARISON: [facility], CR, XR CHEST 2V, 02/16/2021, 16:03. FINDINGS: PICC was placed by the intravenous therapy team from the left side. Fluoroscopic spot film demonstrates the tip of PICC projecting to the area of upper SVC.. Moderate left pleural effusion with adjacent atelectasis. Diffuse bilateral ill-defined and patchy ground-glass opacities are grossly unchanged. Severe bilateral shoulder joint degeneration and diffuse osteopenia. IMPRESSION: Tip of PICC projects to the area of upper SVC. Dictated by: Miquel Rodriguez M.D. on 03/02/2021 at 11:31 Approved by: Miquel Rodriguez M.D. on 03/02/2021 at 11:32
--- NOTE | 2021-03-02 13:46 | P.PN_ITS ---
Subjective Subjective Date Patient Seen: 03/02/21 Time Patient Seen: 07:46 Interval history: Overnight dropped her pressures to the 70s, was started on low dose levophed. Attempted this AM to stop levophed but dropped MAP below 65. PICC placed. This morning she states she feels less confused than yesterday, her shortness of breath is chronic and at baseline. Her pain is controlled. No fevers or chills. Exam Vital Signs (past 8 hours): - 03/02/21 05:50 03/02/21 06:00 03/02/21 06:55 Temperature Pulse Rate 69 69 69 Respiratory Rate 10 L 11 L Blood Pressure 94/48 L Pulse Oximetry 98 98 98 03/02/21 07:00 03/02/21 07:55 03/02/21 08:00 Temperature 97.0 F L Pulse Rate 69 69 69 Respiratory Rate 14 16 Blood Pressure 106/50 L 101/52 L Pulse Oximetry 98 96 95 03/02/21 08:55 03/02/21 09:00 03/02/21 09:55 Temperature Pulse Rate 69 69 71 Respiratory Rate 17 24 20 Blood Pressure 96/51 L Pulse Oximetry 93 92 93 03/02/21 10:00 03/02/21 10:55 03/02/21 11:00 Temperature Pulse Rate 69 71 69 Respiratory Rate 16 17 20 Blood Pressure 81/41 L Pulse Oximetry 94 97 98 03/02/21 11:55 03/02/21 12:00 03/02/21 12:33 Temperature 98.7 F 98.7 F Pulse Rate 69 69 70 Respiratory Rate 15 15 14 Blood Pressure 84/40 L 82/40 L Pulse Oximetry 100 99 03/02/21 12:48 03/02/21 12:55 03/02/21 13:00 Temperature 97.9 F Pulse Rate 75 72 69 Respiratory Rate 13 17 Blood Pressure 94/44 L 97/45 L Pulse Oximetry 97 98 Fraction of Inspired Oxygen 45 Oxygen Delivery Method High Flow Nasal Cannula Oxygen Flow Rate 3 Narrative Exam Narrative: GEN: chronically ill appearing, frail, no acute distress HEEN: dry mucous membranes, PERRL NECK: no JVD, trachea midline CV: regular rate and rhythm, 2/6 systolic murmur PULM: decreased breath sounds on left, poor air movement ABD: soft, nontender, nondistended, no organomegaly, normal bowel sounds EXT: warm and well perfused, no edema NEURO: awake and alert, moving all extremities PSYCH: pleasant SKIN: 6cm sacral wound with sloughing skin, mild erythema around wound Objective Labs Result Diagrams: 03/02/21 04:30 03/02/21 04:30 Labs: Laboratory Results - last 24 hr 03/01/21 03/01/21 03/01/21 15:11 15:45 15:45 WBC 9.1 RBC 3.92 L Hgb 10.0 L Hct 31.4 L MCV 80.2 MCH 25.7 L MCHC 32.0 RDW 18.2 H Plt Count 222 Neut % (Auto) 86.6 H Lymph % (Auto) 6.8 L Peach % (Auto) 6.0 Eos % (Auto) 0.2 L Baso % (Auto) 0.4 Neut # (Auto) 7900 H Lymph # (Auto) 600 L Peach # (Auto) 600 Eos # (Auto) 0 Baso # (Auto) 0 PT 31.5 H INR 2.7 H APTT 37 H ABG pH ABG pCO2 ABG pO2 ABG HCO3 ABG Total CO2 ABG O2 Saturation ABG Base Excess FiO2 Sodium Potassium Chloride Carbon Dioxide BUN Creatinine Estimated GFR BUN/Creatinine Ratio Glucose Lactate 1.5 Calcium Total Bilirubin AST ALT Alkaline Phosphatase Total Protein Albumin Globulin Albumin/Globulin Ratio Lipase Procalcitonin Nasal Screen MRSA (PCR) SARS-CoV-2 (PCR) Blood Type Antibody Screen Antibody Identification Crossmatch 03/01/21 03/01/21 03/01/21 15:45 16:20 18:37 WBC RBC Hgb Hct MCV MCH MCHC RDW Plt Count Neut % (Auto) Lymph % (Auto) Peach % (Auto) Eos % (Auto) Baso % (Auto) Neut # (Auto) Lymph # (Auto) Peach # (Auto) Eos # (Auto) Baso # (Auto) PT INR APTT ABG pH 7.46 H ABG pCO2 47.1 H ABG pO2 91 ABG HCO3 34 H ABG Total CO2 35 H ABG O2 Saturation 97 ABG Base Excess 10.0 H FiO2 45 Sodium 129 L Potassium 4.5 Chloride 87 L Carbon Dioxide 35 H BUN 55 H Creatinine 1.86 H Estimated GFR 25.7 L BUN/Creatinine Ratio 29.6 H Glucose 94 Lactate Calcium 9.5 Total Bilirubin 1.2 AST 65 H ALT 36 H Alkaline Phosphatase 87 Total Protein 6.7 Albumin 3.4 L Globulin 3.3 Albumin/Globulin Ratio 1.0 Lipase 45 Procalcitonin 0.41 Nasal Screen MRSA (PCR) SARS-CoV-2 (PCR) Negative Blood Type Antibody Screen Antibody Identification Crossmatch 03/01/21 03/02/21 03/02/21 20:00 04:30 04:30 WBC 7.1 RBC 2.84 L Hgb 7.4 L Hct 23.0 L MCV 80.7 MCH 25.9 L MCHC 32.1 RDW 18.3 H Plt Count 171 Neut % (Auto) 83.3 H Lymph % (Auto) 8.5 L Peach % (Auto) 7.6 Eos % (Auto) 0.1 L Baso % (Auto) 0.5 Neut # (Auto) 5900 Lymph # (Auto) 600 L Peach # (Auto) 500 Eos # (Auto) 0 Baso # (Auto) 0 PT INR APTT ABG pH ABG pCO2 ABG pO2 ABG HCO3 ABG Total CO2 ABG O2 Saturation ABG Base Excess FiO2 Sodium 138 Potassium 3.4 Chloride 107 Carbon Dioxide 24 BUN 40 H Creatinine 1.23 H Estimated GFR 41.5 L BUN/Creatinine Ratio 32.5 H Glucose 76 L Lactate Calcium 6.5 L Total Bilirubin AST ALT Alkaline Phosphatase Total Protein Albumin Globulin Albumin/Globulin Ratio Lipase Procalcitonin Nasal Screen MRSA (PCR) Negative for mrsa SARS-CoV-2 (PCR) Blood Type Antibody Screen Antibody Identification Crossmatch 03/02/21 07:40 WBC RBC Hgb Hct MCV MCH MCHC RDW Plt Count Neut % (Auto) Lymph % (Auto) Peach % (Auto) Eos % (Auto) Baso % (Auto) Neut # (Auto) Lymph # (Auto) Peach # (Auto) Eos # (Auto) Baso # (Auto) PT INR APTT ABG pH ABG pCO2 ABG pO2 ABG HCO3 ABG Total CO2 ABG O2 Saturation ABG Base Excess FiO2 Sodium Potassium Chloride Carbon Dioxide BUN Creatinine Estimated GFR BUN/Creatinine Ratio Glucose Lactate Calcium Total Bilirubin AST ALT Alkaline Phosphatase Total Protein Albumin Globulin Albumin/Globulin Ratio Lipase Procalcitonin Nasal Screen MRSA (PCR) SARS-CoV-2 (PCR) Blood Type A Negative Antibody Screen Positive Antibody Identification See Comments Crossmatch See Detail [facility] Medical History Arthritis Heart failure Surgical History History of hip replacement Hx of hysterectomy Hx of mastectomy Social History marital status: unknown household members: none occupational status: previously employed Smoking Status: Never smoker alcohol intake: current Assessment & Plan Assessment & Plan narrative: Ms. Magaña came in with infected stage 4 sacral ulcer and was found to be hyoptensive likely from overdiuresis in setting of infection. 1. Infected stage 4 sacral ulcer, acute -patient initially hypotensive in ED -WBC ok, lactate ok, no tachycardia indicate likely patient not septic -for now will dose broadly on antibiotics with zosyn to cover enterobacter and peptoniphilus, clindamycin to cover clostridium and staph -initially did get cefazolin for staph, but will dc based on clinda sensitivities -will change antibiotics based on patient becoming clinically stable -follow up blood cultures -appreciate surgical consultation, plan for OR 03/02 -NPO until surgery 2. Hypotension, witch hypovolemic shock -likely multifactorial with overdiuresis in setting on infection, and poor oral intake -creatinine elevated on arrival, and patient on exam hypovolemic -needed low dose levophed starting night of 03/01 with MAP goal >65 3. Acute on chronic respiratory failure, on 2-3L oxygen at home -respiratory failure secondary to hypoxemia from chronic CHF causing chronic L pleural effusion -hold diuretics for now -careful with IV fluid resuscitation -patient does not want to be intubated -no evidence of pneumonia on imaging 4. Diastolic CHF with CAD, aortic stenosis s/p TAVR with AI, atrial fibrillation s/p PPM -as above patient has pulmonary fluid, but appears dehydrated on exam -given low BP giving gentle fluid but with CHF and AI at risk of worsening pul monary edema -hold apixaban given plan for surgery 5. JOSÉ ANTONIO -creatinine elevated to 1.84 from 0.9 on admission -with IV fluids and antibiotics improved to 1.23 -patient hypotensive, hypovolemic on exam, sodium of 129 and normalized with IV fluids -will hold torsemide -IVF as above -monitor creatinine daily -avoid nephrotoxins 6. Chronic pain -order PRN oxycodone, but careful with dose given hypotension -hold gabapentin due to JOSÉ ANTONIO 7. Coagulopathy -etiology multifactorial likely from poor nutrition and possibly infection -will monitor INR daily -no indication for reversal at this time 8. Anemia -hemoglobin of 10 on admission, decreased to 7.4 on 03/02 -in setting of hypotension will plan for transfusion -no evidence of acute bleeding currently, likely related to dilutional affect from resuscitation -monitor hemoglobin closely, recheck after transfusion 9. Hypocalcemia -likely from malnutrition and infection -ordered for calcium replacement IVF: gentle fluid at 100 cc/hr DVT ppx: holding apixaban for surgery DIET: NPO after midnight for surgery CODE: DNR, proxy is daughter Iris
--- NOTE | 2021-03-02 14:19 | CM.DANOTE ---
Addendum entered by Marge Rodriguez LPN 03/02/21 14:40: Update: see now that the debridement procedure is scheduled for late this afternoon with Dr. Guzmán. Addendum entered by Marge Rodriguez LPN 03/02/21 14:36: Admission Counselor note states the second insurance is [email or web address]. Original Note: Discharge Planning/Care Management DCP: assessment: case received, EMR reviewed and met with pt and her POA daughter Iris Broda: [phone] Introduced self and role. Pt is an 85 year old female who admitted yesterday afternoon to care of hospitalist team. PCP: Dr. Anne Navarro Consulting: [facility]: Dr. Osbaldo Guzmán (pt was here on 02/19 for a debridement procedure under Dr. Mailk's care: R buttock with extension almost to rectum). Was an [facility] admission status) Dr. Guzmán took pt to OR for a debridement last evening. She is receiving blood transfusion today and a PICC is being placed. Payer: Medicare and commercial insurance Admission status: INPT: confirmed by UR REECE Bautista. Iris confirms that pt lives in her own dwelling on property shared with Iris and her Jared. [facility] private caregivers come in every morning to help care for pt. DCP team will be following as POC unfolds to assist with d/c issues and options. CM Discharge Assessment Start: 03/02/21 14:15 Freq: Status: Active Protocol: Document 03/02/21 14:15 ITV (Rec: 03/02/21 14:19 ITV [id number]) Discharge Planning Assessment Advance Directives? Yes Advance Directives on File Yes History Provided By Patient,Medical Record Prior Living Arrangements House Household Members none Comment pt lives on same property as her POA daughter Iris Broda: [phone] Type of transporation used prior to Relies on Others admit Review Status In Process
--- NOTE | 2021-03-02 14:32 | PC.NURSE ---
Day Shift Note Pt alert and oriented to self and place (after reorientation this AM). Forgetful regarding the plan of care and sequence of events, reorienting as needed. On 2-3L HFNC throughout shift, SpO2 92-96%, normally wears 2-3L at home. Levophed infusing on AM assessment, attempted to wean off without success (BP decreased to 70s/30s). Levophed currently at 3 mcg/min to keep MAP greater than 65 - currently at 66. 1 unit PRBCs infusing at this time, started at 1233. PICC line placed to left upper arm by DI nurse this morning due to continued vasopressor use. Placement verified via CXR. Banks catheter in place and draining clear yellow urine, adequate urine output this shift (395 ml). Assisting to turn every 2 hours and per pt request. NPO for surgical debridement of st. 4 right sacral pressure injury at 1615. Dressing is C/D/I. Call light within reach, using appropriately to make needs known. Bed alarm on. JUANJO/daughter Iris at bedside.
[2021-03-02] MEDS: ONDANSETRON 4 MG/2 ML INJ IV (14:42)
--- NOTE | 2021-03-02 16:41 | PM.PREOP ---
Pre-operative Note Interval Note History & Physical reviewed/Exam performed by Physician: Yes Changes to H&P: No H&P completed within 30 days and has changed as indicated here:: Anemia and hypotension-received transfusion of PRBCs and currently on Levo 2mcg/min. Repeat CBC pending Discussed operative details with patient and POA. Debridement of decubitus ulcer, operative risks including bleeding, infection, impaired wound healing, as well as cardipulmonary risks associated with anesthesia. Their questions have been answered and they are in agreement with this plan.
[2021-03-02 17:01] LABS: Hematocrit 31.7 % (36-46); Hemoglobin 10.1 g/dL (12.0-16.0); Mean Corpuscular HGB Conc 31.9 % (30-36); Mean Corpuscular Hemoglobin 25.9 PG (26-34); Mean Corpuscular Volume 81.3 fL (80-100); Platelet Count 201 X10^3/uL (150-400); Red Cell Distribution Width 17.9 % (11.6-14.8); White Blood Cell Count 9.1 X10^3/uL (4.5-11.0)
[2021-03-02 17:07] LABS: INR 2.7 (0.9-1.3); Prothrombin Time 31.3 SECONDS (10.1-12.7)
--- NOTE | 2021-03-02 18:25 | SUR.OPER ---
Lateral on padded OR bed, head on pillow, gel axillary roll in place, bottom leg bent with gel pad under knee to foot, upper leg straight and supported with pillows. Upper arm supported by pillows and secured over bottom arm to padded arm board. Safety belt at hip, tape over blanket lower legs.
[2021-03-02] MEDS: BUPIVACAINE 0.5% W/ EPI (PF) 30 ML VIAL INJ (18:35)
--- NOTE | 2021-03-02 19:02 | P.OP_ITS ---
Operative Date/Time/Diagnoses Date of procedure: 03/02/21 Time of procedure: 19:02 Pre-op diagnosis: Medically ill, dehydrated, JOSÉ ANTONIO, sacral decub growing multiple matt Post-op diagnosis: same Procedure & Clinicians Procedure: Excisional debridement of sacral decub 8 cm x 10 cm by 8 mm deep Same procedure as scheduled: Yes Indications: Medically ill patient with multiple matt growing from open sacral decubitus Surgeon: Jennyfer Taylor Click Yes if Unassisted: Yes Anesthesia Type: General Operative Notes Findings: 6 x 8 cm skin opening with a base of yellow and white slough overlying the sacrum. Undermining of the skin circumferentially. Specimen(s): other (Tissue for culture) Estimated Blood Loss (mL): 5 Procedure in detail: The patient was brought into the OR. Sequential compression devices were placed on both legs and turned on. Appropriate perioperative antibiotics were given. The patient was turned to left lateral decubitus position on the OR table. All bony prominences were padded. Sacral area was prepped and draped in sterile fashion using Betadine paint. Surgical timeout was conducted. The wound is explored, and was found to be 8-10 cm across as there was undermining circumferentially underneath the skin edges. There was yellow and white slough at the base of the wound which was sharply excised using cautery. There was some reactive muscle, and bleeding subcutaneous fat at the borders. The yellow white slough was excised until the healthier appearing tissue was r eached. The entire 8 x 10 cm wound base was sharply debrided. The overhanging Nate was then sharply excised using cautery on cut after infiltrating with local anesthetic using 0.5% Marcaine with epi for a total of 20 mL. The excised skin was passed off the field. The remaining wound was now 8x 10 cm in the skin and the wound bed with no undermining. Cautery was used to achieve hemostasis, and then the wound was packed with Aquacel over the base of the wound, covered with gauze over the Aquacel. The patient was transferred onto her hospital bed into supine position. She was then awakened from anesthesia and extubated. Needle, sponge, and instrument counts were correct x 2. The patient was transferred to the PACU in stable condition. Complications: none Post-operative Condition: stable Disposition: PACU
--- NOTE | 2021-03-02 19:50 | SUR.PHASEI ---
pt went directly from OR back to room 230 with Anesthesiologist and PLATE PREPARER to ICU primary care RN.
--- NOTE | 2021-03-02 22:14 | PC.NURSE ---
Evening shift note: Pt A/O to self and place, forgetful regarding events last night. Was on 2-3 L HFNC before surgery, returned at 1855 from I&D requiring 10L HFNC, was able to titrate down to 6L, O2 sats at 92-96%, normally wears 2-3 L at home. Levophed currently infusing at 5mcg/mins titrating for MAP of 65, current BP 91/45 with MAP of 63 (provider ok with that MAP). Provider gave verbal order to hold fluids at this time to avoid fluid volume overload. Banks catheter in place and patent, clear yellow urine draining. Pt taken by this nurse to OR for I&D of stage 4 Right sacral pressure injury, returned at 1855 with new dressing CDI. Bed low and locked, alarm on for safety, call light within reach, able to make needs known, daughter Iris GEIGER at bedside, will continue to monitor.
[2021-03-03] VITALS (99 sets, daily range): BP systolic 77–132; BP diastolic 38–62; PULSE 69–95; RESP 10–30; TEMP 36–36.5; O2SAT 87–100
[2021-03-03] MEDS: CLINDAMYCIN 900 MG/50 ML PIGGYBACK 50 MG IV ×3 (00:08→16:01)
[2021-03-03] MEDS: NOREPINEPHRINE 4 MG in DEXTROSE 5% IN WATER 250 ML 19.05 ML IV (00:10)
[2021-03-03] MEDS: ONDANSETRON 4 MG/2 ML INJ IV ×2 (02:16→08:23)
[2021-03-03] MEDS: PIPERACILLIN/TAZO 3.375 GM in SODIUM CHLORIDE 0.9% 100 ML 25 ML IV (04:07)
[2021-03-03 04:41] LABS: Enterococcus species Not Detected (Not Detect); Listeria monocytogenes Not Detected (Not Detect)
[2021-03-03 04:42] LABS: Staphylococcus species Detected (Not Detect)
[2021-03-03] MEDS: OXYCODONE IR 5 MG TABLET PO ×4 (04:42→17:59)
[2021-03-03 04:43] LABS: Acinetobacter baumannii Not Detected (Not Detect); Candida albicans Not Detected (Not Detect); E. coli Not Detected (Not Detect); Enterobacter cloacae complex Not Detected (Not Detect); Enterobacteriaceae species Not Detected (Not Detect); Haemophilus influenzae Not Detected (Not Detect); Methicillin-resistant gene Detected (Not Detect); Neisseria meningitidis Not Detected (Not Detect); Proteus species Not Detected (Not Detect); Serratia marcescens Not Detected (Not Detect); Streptococcus agalactiae (Gr B Not Detected (Not Detect); Streptococcus pneumonia Not Detected (Not Detect); Streptococcus pyogenes (Gr A) Not Detected (Not Detect); Streptococcus species Not Detected (Not Detect)
[2021-03-03 04:44] LABS: Candida glabrata Not Detected (Not Detect); Candida krusei Not Detected (Not Detect); Candida parapsilosis Not Detected (Not Detect); Candida tropicalis Not Detected (Not Detect); Pseudomonas aeruginosa Not Detected (Not Detect)
[2021-03-03 05:04] LABS: Hematocrit 33.8 % (36-46); Hemoglobin 10.9 g/dL (12.0-16.0); Mean Corpuscular HGB Conc 32.1 % (30-36); Mean Corpuscular Hemoglobin 25.9 PG (26-34); Mean Corpuscular Volume 80.8 fL (80-100); Platelet Count 204 X10^3/uL (150-400); Red Blood Cell Count 4.19 X10^6/uL (4.0-5.2); Red Cell Distribution Width 18.4 % (11.6-14.8); White Blood Cell Count 10.6 X10^3/uL (4.5-11.0)
[2021-03-03 05:08] LABS: INR 2.7 (0.9-1.3); Prothrombin Time 31.9 SECONDS (10.1-12.7)
[2021-03-03 05:12] LABS: BUN Creatinine Ratio 32.9 (6-22); Blood Urea Nitrogen 46 mg/dL (7-17); Calcium 8.1 mg/dL (8.4-10.2); Carbon Dioxide 26 mmol/L (22-32); Chloride 102 mmol/L (98-107); Estimated Glomerular Filt Rate 35.7 mL/min (>60); Glucose 86 mg/dL (80-110); HEMOLYSIS 22 (0-50); Sodium 136 mmol/L (137-145)
--- NOTE | 2021-03-03 06:25 | PC.NURSE ---
Bun Panner Note-Patient was drowsy and bit disoriented when woke up early in shift, by morning she was back to baseline, and using call light. Levophed titrated slowly from 5mcg/min down to 1mcg/min keeping MAP 60-65 or > as ordered, see vital trends. IV Zofran given for nausea, 5mg oxycodone given once in am at 0500. Drsg to coccyx area D/I. Total UOP 350ml.
[2021-03-03] MEDS: SODIUM CHLORIDE 0.9% 500 ML 1000 ML IV ×2 (08:07→14:16)
[2021-03-03] MEDS: ACETAMINOPHEN 325 MG TABLET 650 MG PO (08:19)
[2021-03-03] MEDS: CEFTRIAXONE 1 GM/50 ML FROZ.PIGGY IV (08:52)
[2021-03-03] MEDS: VANCOMYCIN 1,000 MG/200 ML PIGGYBACK 200 MG IV (08:52)
--- NOTE | 2021-03-03 10:44 | DIET.PN ---
Dietary Progress Note RD note on this pt with infected sacral wound. Kitchen is sending [facility] bid to support pts wound healing.
[2021-03-03] MEDS: APIXABAN 5 MG TABLET PO (12:38)
[2021-03-03] MEDS: ONDANSETRON 4 MG ODT SL ×2 (12:38→16:01)
[2021-03-03] MEDS: BISACODYL 10 MG SUPP PR (12:38)
--- NOTE | 2021-03-03 13:06 | CM.DPC ---
Addendum entered by Nohemi Lamas R.N. 03/03/21 16:01: Armida from [facility] called. Ayanna can do info visit tomorrow. Updated daughter, Iris, who is interested. Faxed Hospice over POA paperwork. Vani at [facility] can't accept patient due to the type of bed needed and mattress for wound. Original Note: DCP Cont: Met with patient's daughter, Iris, in her room. Discussed current care needs. Confirmed that patient lives on daughter's property, and has [facility] 5 hours a day. Discussed discharge planning, and mentioned the possibility of patient having fpc before going home. She has not worked with P.T. as of yet. Daughter mentioned that she had been to [facility], [facility], after her CVA. Also mentioned that she had been to [facility], but was not happy about the care. Gave her the Medicare Choice List. Daughter would not mind her being somewhere here in [place] for rehab. Went ahead and sent referrals to [facility], [facility]. Confirmed with Aviva at [facility] that they do have beds available, and she will review. Sent referral to [facility] as well. Hospitalist did put in a hospice consult. Went ahead and faxed referral over to [facility] as well. Vani at [facility] is also reviewing, and has limited beds. P: DCP to continue to follow. Patient will either go home and resume [facility], hospice referral is in, so information visit will occur. Will need to follow up. Other options are [facility], , or [facility], pending their reviews. Nohemi Lamas RN/Technical Sales Specialist
--- NOTE | 2021-03-03 13:28 | P.PN_ITS ---
Subjective Subjective Date Patient Seen: 03/03/21 Time Patient Seen: 08:29 Interval history: Yesterday she went for debridement of her sacral wound. Upon returning from the OR she was hypoxemic and hypotensive. Did require going up to 10L oxygen, and increasing levophed to 5. Overnight she has been weaned down to 3L oxygen, which is her baseline. She is down to 1 of levophed. This morning she feels somewhat improved. However still has buttock pain. Exam Vital Signs (past 8 hours): - 03/03/21 06:06 03/03/21 07:00 03/03/21 08:00 Temperature 97.5 F L Pulse Rate 73 69 70 Respiratory Rate 17 25 H Blood Pressure 103/49 L 87/45 L 98/48 L Pulse Oximetry 97 97 03/03/21 09:00 03/03/21 10:00 03/03/21 10:37 Temperature Pulse Rate 69 69 Respiratory Rate 18 21 Blood Pressure 102/50 L 86/47 L Pulse Oximetry 95 97 97 03/03/21 11:15 03/03/21 12:00 03/03/21 13:00 Temperature 97.7 F Pulse Rate 69 69 69 Respiratory Rate 22 14 20 Blood Pressure 102/54 L 102/48 L 132/62 Pulse Oximetry 98 98 96 Fraction of Inspired Oxygen 45 Oxygen Delivery Method High Flow Nasal Cannula Oxygen Flow Rate 3 Narrative Exam Narrative: EN: chronically ill appearing, frail, no acute distress HEEN: dry mucous membranes, PERRL NECK: no JVD, trachea midline CV: regular rate and rhythm, 3/6 diastolic murmur PULM: decreased breath sounds on left, poor air movement ABD: soft, nontender, nondistended, no organomegaly, normal bowel sounds EXT: warm and well perfused, no edema NEURO: awake and alert, moving all extremities PSYCH: pleasant SKIN: sacral wound now bandaged, clean and dry Objective Labs Result Diagrams: 03/03/21 04:40 03/03/21 04:40 Labs: Laboratory Results - last 24 hr 03/01/21 03/01/21 03/02/21 15:45 19:09 07:40 WBC RBC Hgb Hct MCV MCH MCHC RDW Plt Count PT INR ABG pH 7.46 H ABG pCO2 47.1 H ABG pO2 91 ABG HCO3 34 H ABG Total CO2 35 H ABG O2 Saturation 97 ABG Base Excess 10.0 H FiO2 45 Sodium Potassium Chloride Carbon Dioxide BUN Creatinine Estimated GFR BUN/Creatinine Ratio Glucose Calcium A. baumannii (PCR) Not detected Paige albicans (PCR) Not detected C. glabrata (PCR) Not detected C. krusei (PCR) Not detected C. parapsilosis (PCR) Not detected C. tropicalis (PCR) Not detected Enterobacteriac sp PCR Not detected E. cloacae complex PCR Not detected Enterococcus sp PCR Not detected E. coli (PCR) Not detected H. influenzae (PCR) Not detected Klebsiella oxytoca PCR Not detected Klebsiella pneumoniae Not detected List. monocytogenes PCR Not detected N. meningitidis (PCR) Not detected Proteus species (PCR) Not detected Serratia marcescens PCR Not detected Staphylococcus sp PCR Detected H Staph aureus (PCR) Not detected mecA-Methicil Res Gene Detected H Streptococcus sp PCR Not detected Group A Strep (PCR) Not detected Strep agalactiae (PCR) Not detected Strep pneumoniae (PCR) Not detected P. aeruginosa (PCR) Not detected Kaitlin/B-Vanco Res Genes Not Reportable KPC-Carbap Res Gene PCR Not Reportable Crossmatch See Detail 03/02/21 03/02/21 03/03/21 16:41 16:41 04:40 WBC 9.1 10.6 RBC 3.90 L 4.19 Hgb 10.1 L 10.9 L Hct 31.7 L 33.8 L MCV 81.3 80.8 MCH 25.9 L 25.9 L MCHC 31.9 32.1 RDW 17.9 H 18.4 H Plt Count 201 204 PT 31.3 H INR 2.7 H ABG pH ABG pCO2 ABG pO2 ABG HCO3 ABG Total CO2 ABG O2 Saturation ABG Base Excess FiO2 Sodium Potassium Chloride Carbon Dioxide BUN Creatinine Estimated GFR BUN/Creatinine Ratio Glucose Calcium A. baumannii (PCR) Paige albicans (PCR) C. glabrata (PCR) C. krusei (PCR) C. parapsilosis (PCR) C. tropicalis (PCR) Enterobacteriac sp PCR E. cloacae complex PCR Enterococcus sp PCR E. coli (PCR) H. influenzae (PCR) Klebsiella oxytoca PCR Klebsiella pneumoniae List. monocytogenes PCR N. meningitidis (PCR) Proteus species (PCR) Serratia marcescens PCR Staphylococcus sp PCR Staph aureus (PCR) mecA-Methicil Res Gene Streptococcus sp PCR Group A Strep (PCR) Strep agalactiae (PCR) Strep pneumoniae (PCR) P. aeruginosa (PCR) Kaitlin/B-Vanco Res Genes KPC-Carbap Res Gene PCR Crossmatch 03/03/21 03/03/21 04:40 04:40 WBC RBC Hgb Hct MCV MCH MCHC RDW Plt Count PT 31.9 H INR 2.7 H ABG pH ABG pCO2 ABG pO2 ABG HCO3 ABG Total CO2 ABG O2 Saturation ABG Base Excess FiO2 Sodium 136 L Potassium 4.0 Chloride 102 Carbon Dioxide 26 BUN 46 H Creatinine 1.40 H Estimated GFR 35.7 L BUN/Creatinine Ratio 32.9 H Glucose 86 Calcium 8.1 L A. baumannii (PCR) Paige albicans (PCR) C. glabrata (PCR) C. krusei (PCR) C. parapsilosis (PCR) C. tropicalis (PCR) Enterobacteriac sp PCR E. cloacae complex PCR Enterococcus sp PCR E. coli (PCR) H. influenzae (PCR) Klebsiella oxytoca PCR Klebsiella pneumoniae List. monocytogenes PCR N. meningitidis (PCR) Proteus species (PCR) Serratia marcescens PCR Staphylococcus sp PCR Staph aureus (PCR) mecA-Methicil Res Gene Streptococcus sp PCR Group A Strep (PCR) Strep agalactiae (PCR) Strep pneumoniae (PCR) P. aeruginosa (PCR) Kaitlin/B-Vanco Res Genes KPC-Carbap Res Gene PCR Crossmatch [facility] Medical History (Updated 03/03/21 @ 10:44 by Marcela Dobson RN) Arthritis CVA (cerebral vascular accident) Heart failure Surgical History History of hip replacement Hx of hysterectomy Hx of mastectomy Social History marital status: unknown household members: none occupational status: previously employed Smoking Status: Never smoker alcohol intake: current Assessment & Plan Assessment & Plan narrative: Ms. Magaña came in with infected stage 4 sacral ulcer and was found to be hyoptensive likely from overdiuresis in setting of infection. 1. Infected stage 4 sacral ulcer, acute -patient initially hypotensive in ED -WBC ok, lactate ok, no tachycardia indicate likely patient not septic -for now will dose with clindamycin for clostridium, peptonipholus, staph aureus, ceftriaxone for enterobacter -initially did get cefazolin/zosyn but will dc given sensitivities -will change antibiotics based on patient becoming clinically stable -follow up blood cultures -appreciate surgical consultation, underwent wound debridement 03/02 2. Staph bacteremia -in anaerobic bottle from one draw -PCR indicates possible staph epi given mecA gene -think possibly a contaminant -will order vanco 03/03 -repeat blood culture 03/03 -follow up final blood cultures 3. Hypotension, witch hypovolemic shock -likely multifactorial with overdiuresis in setting on infection, and poor oral intake -creatinine elevated on arrival, and patient on exam hypovolemic -needed low dose levophed starting night of 03/01 with MAP goal >65 -giving gentle fluid resuscitation and continuining antibiotics with goal of stopping levophed -ECHO showed preserved EF, mildly dilated RV, pulmonary hypertension, prosthetic AV with moderate aortic regurgitation -aortic regurgitation from poorly situation valve per patient, likely the cause of low diastolic pressures 3. Acute on chronic respiratory failure, on 2-3L oxygen at home, known aortic regurgitation -respiratory failure secondary to hypoxemia from chronic CHF causing chronic L pleural effusion -will need to hold diuretics and afterload medications for now given blood pressure -careful with IV fluid resuscitation -patient does not want to be intubated -no evidence of pneumonia on imaging 4. Diastolic CHF with CAD, aortic stenosis s/p TAVR with AI, atrial fibrillation s/p PPM -as above patient has pulmonary fluid, but appears dehydrated on exam -given low BP giving gentle fluid but with CHF and AI at risk of worsening pulmonary edema -restart apixaban 03/03 5. JOSÉ ANTONIO -creatinine elevated to 1.84 from 0.9 on admission -with IV fluids and antibiotics improved to 1.4 -patient hypotensive, hypovolemic on exam, sodium of 129 and normalized with IV fluids -will hold torsemide -IVF as above -monitor creatinine daily -avoid nephrotoxins as able, but did order vancomycin for positive blood cultu res 6. Chronic pain -order PRN oxycodone, but careful with dose given hypotension -hold gabapentin due to JOSÉ ANTONIO 7. Coagulopathy -etiology multifactorial likely from poor nutrition and possibly infection -will monitor INR daily -no indication for reversal at this time 8. Anemia -hemoglobin of 10 on admission, decreased to 7.4 on 03/02 -in setting of hypotension will plan for transfusion -no evidence of acute bleeding currently, likely related to dilutional affect from resuscitation -monitor hemoglobin closely, recheck after transfusion 9. Hypocalcemia -likely from malnutrition and infection -ordered for calcium replacement IVF: prn boluses DVT ppx: apixaban DIET: low salt diet CODE: DNR, proxy is daughter Iris
--- NOTE | 2021-03-03 14:21 | PC.NURSE ---
Day Shift Note Dressing to right sacral/buttock wound changed per MD order. Aquacel to base and gauze replaced. New allevyn dressing placed over gauze to secure, pt tolerated well. Fair amount of serosanguinous/purulent drainage noted to old dressing. Levophed continues at 1 mcg/min this shift to keep MAP greater than 60-65. 500 ml NS bolus administered this AM with minimal effect on BP. An additional 500 ml NS bolus currently infusing per MD order to facilitate levophed weaning. Adequate urine output this shift noted (see totals), hu catheter in place and draining yellow urine. Call light within reach, using appropriately to make needs known. Turning every 2 hours. Daughter, Iris, at bedside.
--- NOTE | 2021-03-03 15:05 | ST.IPCSEOM ---
Visit Care Team Role Provider Type Martinez Guzmán MD Other Providers Physician Specialty: General Surgery Address: [address] [place] [address], [id number] Email: [email or web address] Korey Navarro MD Family Provider Physician Primary Care Provider Specialty: Internal Medicine Address: [address] [place] [address], [facility] Email: [email or web address] Wayne Matias DO Emergency Provider Physician Referring Provider Specialty: Emergency Medicine Address: [address] [place] [address], [id number] Email: [email or web address] Noah Valdes MD Admit Provider Physician Attending Provider Specialty: Hospitalist Address: [address] [place] [address], [facility] Fax: Email: [email or web address] Diagnoses Pressure ulcer of sacral region, stage 4 (03/01/21) Past Medical History (Last Updated 03/03/21 @ 10:44 by Marcela Dobson RN) Arthritis (Medical) CVA (cerebral vascular accident) (Medical) Heart failure (Medical) Speech-Language Pathology Swallow Evaluation CLAY DIGGER Clinical Swallow Evaluation Start: 03/03/21 14:45 Freq: Status: Active Protocol: Document 03/03/21 14:45 LNK (Rec: 03/03/21 15:04 LNK [id number]) Clinical Swallow Evaluation Session Time Visit Start Time 12:30 Visit Stop Time 13:00 Total Visit Minutes [address] Valdes Reason for Referral dysphagia Setting Assessment Location Acute Care Visit Type Note Type Initial evaluation Patient Information Identification Type Name,Wristband History Ms. Magaña is an 85W with PMH of CAD s/p stent, diastolic CHF, chronic left pleural effusion, atrial fibrillation s/p PPM, aortic valve stenosis s/p TAVR now with aortic insufficiency, chronic narcotic therapy, bilateral mastectomy and hysterectomy who is coming in with infected sacral decubitus ulcer. She presented to wound care with worsening pain, draining from the wound and was started on antibiotics with levofloxacin four days ago. Pt reported to the ED that overall she feels like she lacks appetite and has been weaker than her baseline. Pt had durgery last night for debridment of her ulcer. This morning, nursing reported that pt has been coughing with her liquids. he daughter mentioned the same at home. Pt denies coughing, stating that she was back too far in her chair. Subjective Observations Pt was up in bed with lunch tray nearby. Pt is a former nurse. She requested soft foods this morning. Pureed and easy to digest foods are served with her lunch. Reported by Patient Other Symptoms Coughing,Difficulty swallowing liquids Baseline Feeding Method Independent in self-feeding Objective Assessment Mental Status Alert,Responsive,Cooperative Dentition Missing teeth Lip Function Mild impairment Observation of Lips at Rest Left sided weakness/Drooping Pucker Reduced strength Lip Retraction Reduced range of motion Tongue Function Mild impairment Tongue Protrusion Deviates to the left Tongue Lateralization Incoordination Food and Liquid Trials Liquids Trialed Thin,[place] Solids Trialed Puree Administration Type Tea spoon,Cup single sip, Controlled cup sip,Straw,Self- feeding Oral Impairment Mildly impaired Oral Phase Comments Oral phase was noted to be mildly slow with reduced coordination, Her diadochokinesis was observed to be WFl. Speech was clear and intelligible. Pharyngeal Impairment Within functional limits Pharyngeal Phase Comments Pt's hyolaryngeal elevation and movement was noted to be WFL per palpation. Pt had 1 audible swallow followed immediately be a normal swallow. Pt tolerated use of a thin straw. Medications were swallowed whole with thin liquids without difficulty. No wet voice, no cough/choke observed. Nursing stated that pt was improved from the morning. Fatigue/Endurance Mild fatigue Results Pt presents with a swallow WFL for pt' age. No s/sx aspiration. Findings Swallowing Function Within functional limits Severity of Swallow Impairment Within functional limits Comments Pt is 85 years old Prognosis Good Based on Cognitive status,Family support Comments Mild aspiration risk secondary to age (presbyphagia) Recommendations Instrumental Assessment No Swallowing Treatment No Other Recommendations Diet per pt's request. Please seat py upright for meals Safety Precautions/Swallowing Remain upright (90 degrees) Recommendations during all oral intake Medication Recommendations As Tolerated Discharge Recommendations [facility] facility,Home with Home Health Education Patient/Caregiver Education Described results of evaluation,Patient expressed understanding of evaluation, Patient expressed agreement with goals & treatment plans, Patient expressed understanding of safety precautions
[2021-03-03] MEDS: SODIUM CHLORIDE 0.9% 1,000 ML 1000 ML IV ×2 (17:10→19:12)
[2021-03-03] MEDS: DULOXETINE 20 MG CAPSULE 40 MG PO (17:11)
[2021-03-03] MEDS: NOREPINEPHRINE 4 MG in DEXTROSE 5% IN WATER 250 ML IV (19:11)
[2021-03-03] MEDS: SODIUM CHLORIDE 0.9% 1,000 ML 100 ML IV (19:14)
[2021-03-03] MEDS: APIXABAN 5 MG TABLET 2.5 MG PO (20:57)
[2021-03-03] MEDS: DOCUSATE 100 MG CAPSULE PO (20:57)
--- NOTE | 2021-03-03 21:28 | PC.NURSE ---
Evening shift note: Pt A/O x3, daughter Iris at bedside, dressing to right buttock changed during day shift, pt tolerated well. Levophed continues to infuse at 1mcg/min with goal of MAP greater than 65, 1L bolus ordered and infusing to assist with BP support and transitioning off of Levo gtt. Urine output this shift has been adequate (see I & O), hu catheter in place and patent, draining clear, yellow urine. Pt refusing food, and has limited oral fluid intake. 1914 Pt transitioned from NSR A-Paced on telemetry to AFib (she has a history of), Dr. Valdes at bedside, pt asymptomatic and states that she has not been taking her sotalol for a short period of time (unsure of how long). Provider not wanting to restart meds at this time due to Levophed infusing. 2029 During pt being changed from having a BM it was noted that her BP was 79/44 with a MAP of 54, Levo gtt was titrated up to 2mcg/min to achieve goal of MAP of above 65. Pt tolerated well. Bed low and locked, able to make needs known, will continue to monitor.
[2021-03-04] VITALS (12 sets, daily range): BP systolic 86–111; BP diastolic 48–57; PULSE 83–108; RESP 14–24; TEMP 35.9–36.2; O2SAT 91–94
[2021-03-04] MEDS: CLINDAMYCIN 900 MG/50 ML PIGGYBACK 50 MG IV ×3 (00:25→16:05)
[2021-03-04] MEDS: OXYCODONE IR 5 MG TABLET PO ×3 (00:25→16:06)
[2021-03-04] MEDS: ONDANSETRON 4 MG/2 ML INJ IV (00:26)
[2021-03-04 04:58] LABS: Hematocrit 34.5 % (36-46); Hemoglobin 10.9 g/dL (12.0-16.0); Mean Corpuscular HGB Conc 31.5 % (30-36); Mean Corpuscular Hemoglobin 25.7 PG (26-34); Mean Corpuscular Volume 81.4 fL (80-100); Platelet Count 188 X10^3/uL (150-400); Red Blood Cell Count 4.24 X10^6/uL (4.0-5.2); Red Cell Distribution Width 18.7 % (11.6-14.8); White Blood Cell Count 9.5 X10^3/uL (4.5-11.0)
[2021-03-04 05:17] LABS: BUN Creatinine Ratio 37.1 (6-22); Blood Urea Nitrogen 39 mg/dL (7-17); Calcium 7.5 mg/dL (8.4-10.2); Carbon Dioxide 22 mmol/L (22-32); Chloride 108 mmol/L (98-107); Estimated Glomerular Filt Rate 49.8 mL/min (>60); Glucose 105 mg/dL (80-110); HEMOLYSIS < 15 (0-50); Potassium 3.6 mmol/L (3.4-5.1); Sodium 138 mmol/L (137-145)
--- NOTE | 2021-03-04 06:34 | PC.NURSE ---
Waiter/Waitress Club Note-Patient has dozed comfortably most of the night, medicated with 5mg oxycodone per prn and IV Zofran for nausea and belching. Levophed titrated off at 0230, NS @ 100ml/hr continues. A-fib CVR/RVR with rare paced beats, on 3L HFNC throughout night until 0530 needed to increase to 6L to keep sats >90%, RR 17-26, intermittent shortness of breath, resolves. Total UOP 300ml.
[2021-03-04] MEDS: ONDANSETRON 4 MG ODT SL ×3 (08:40→16:06)
[2021-03-04] MEDS: CEFTRIAXONE 1 GM/50 ML FROZ.PIGGY IV (08:41)
[2021-03-04] MEDS: ASPIRIN EC 81 MG TABLET PO (08:42)
[2021-03-04] MEDS: APIXABAN 5 MG TABLET 2.5 MG PO (08:42)
[2021-03-04] MEDS: ACETAMINOPHEN 325 MG TABLET 650 MG PO (08:43)
[2021-03-04] MEDS: SODIUM CHLORIDE 0.9% 1,000 ML 100 ML IV (08:45)
[2021-03-04] MEDS: DULOXETINE 20 MG CAPSULE 40 MG PO (08:45)
[2021-03-04] MEDS: VANCOMYCIN 1,000 MG/200 ML PIGGYBACK 200 MG IV (08:47)
--- NOTE | 2021-03-04 11:02 | CM.DPC ---
Addendum entered by Nohemi Lamas R.N. 03/04/21 12:37: Spoke to Alison at [facility] to give her an update. Alison indicated that if she stays up to Monday, they will need a new face to face and orders, would be a new cert. Let her know, plan is undecided, pending P.T. if she will go to skilled. Also let her know that hospice may be a possibility. She will be updated upon discharge. Original Note: DCP Cont: Met with patient and daughter, Iris, during team rounds. Confirmed earlier this morning with Rocio at [facility] that they can accept patient as long as she is not on high flow oxygen. Updated daughter and patient during team rounds. Spoke to BROWN Urena at [facility] . She is planning on calling daughter today for informational visit. Updated Ayanna and let her know about situation, that patient has been living in a separate dwelling on patient's property, and has been getting about 5 hours of caregiving by [facility]. Aviva from [facility] is doubtful that they can accept, since she most likely will need a specialized mattress. P:DCP to continue to follow. Plan at this time is either home with hospice, and increased caregivers, or [facility]. Will see how patient does with P.T. which has been ordered. Nohemi Lamas RN/Solid Waste Disposal Manager
[2021-03-04] MEDS: FUROSEMIDE 40 MG/4 ML VIAL IV (11:19)
[2021-03-04] MEDS: SOTALOL 80 MG TABLET 40 MG PO (13:08)
--- NOTE | 2021-03-04 14:26 | PC.NURSE ---
Day Shift Note Oriented to self and place, forgetful at times. Drowsy and fatigued today but is able to make needs known and participate in some aspects of care. Generalized weakness noted. 2 person assist to turn in bed, turning every 2 hours to offload pressure to right sacral ulcer. Dressing changed this AM, tolerated well, old dressing and packing removed and new aquacel placed in wound bed with gauze and an allevyn dressing covering. Wound bed is dark with 90% yellow slough, cleansed with NS. Initially able to wean oxygen to 4L HFNC but had to be increased back to 6L HFNC due to pt report of shortness of breath, RR in the upper 20s, and SPO2 88%. These findings reported to Dr. Bell and Lasix 40 mg IV administered with positive result. Reports breathing much improved post-lasix and RR in the low 20s, SpO2 94-96% on 6L. HR increased to the 110s (persisting after Lasix admin) and sotalol was resumed per MD order. HR currently in the 80-90s, continues in afib. Banks in place and draining clear yellow urine. Call light within reach. Iris, daughter, at bedside.
[2021-03-04] MEDS: METOPROLOL TARTRATE 5 MG/5 ML INJ IV (16:25)
[2021-03-04] MEDS: MORPHINE 2 MG/ML INJ IV (16:25)
[2021-03-04] MEDS: CALCIUM GLUCONATE 4.65 MEQ in SODIUM CHLORIDE 0.9% 50 ML 180 ML IV (16:26)
--- NOTE | 2021-03-04 16:56 | DI.RAD.S_ITS ---
PROCEDURE: XR CHEST 1V INDICATIONS: shortness of breath TECHNIQUE: One view of the chest was acquired. COMPARISON: [facility], CR, XR CHEST FOR PICC 1V, 03/02/2021, 10:57. FINDINGS: Surgical changes and devices: Pacemaker, left axillary clips, percutaneous valve Lungs and pleura: Bilateral pleural effusions, large on the left and probably moderate posteriorly layering on the right. Bibasilar densities likely represent atelectasis and or consolidation. Mediastinum: Mediastinal contours appear normal. Cardiomegaly. Bones and chest wall: No suspicious bony lesions. Overlying soft tissues appear unremarkable. IMPRESSION: Bilateral pleural effusions, moderately large on the left, and probably moderate posteriorly layering on the right. Associated bibasilar atelectasis and or consolidation, left greater than right. Cardiomegaly. Dictated by: Andrei Rodríguez M.D. on 03/04/2021 at 17:34 Approved by: Andrei Rodríguez M.D. on 03/04/2021 at 17:37
--- NOTE | 2021-03-04 17:19 | PM.PN.1 ---
Subjective Subjective Date Patient Seen: 03/04/21 Time Patient Seen: 17:19 Exam Vital Signs (past 8 hours): - 03/04/21 10:14 03/04/21 12:00 Temperature 97.2 F L Pulse Rate 98 H 100 H Respiratory Rate 18 24 Blood Pressure 102/53 L Pulse Oximetry 91 94 Fraction of Inspired Oxygen 35 Oxygen Delivery Method High Flow Nasal Cannula Oxygen Flow Rate 6 Objective Labs Result Diagrams: 03/04/21 04:40 03/04/21 04:40 Labs: Laboratory Results - last 24 hr 03/04/21 03/04/21 04:40 04:40 WBC 9.5 RBC 4.24 Hgb 10.9 L Hct 34.5 L MCV 81.4 MCH 25.7 L MCHC 31.5 RDW 18.7 H Plt Count 188 Sodium 138 Potassium 3.6 Chloride 108 H Carbon Dioxide 22 BUN 39 H Creatinine 1.05 H Estimated GFR 49.8 L BUN/Creatinine Ratio 37.1 H Glucose 105 Calcium 7.5 L PFSH Medical History (Updated 03/03/21 @ 10:44 by Marcela Dobson RN) Arthritis CVA (cerebral vascular accident) Heart failure Surgical History History of hip replacement Hx of hysterectomy Hx of mastectomy Social History marital status: unknown household members: none occupational status: previously employed Smoking Status: Never smoker alcohol intake: current
--- NOTE | 2021-03-04 17:41 | PM.DS.1 ---
History of Present Illness History of Present Illness Date Patient Seen: 03/04/21 Time Patient Seen: 17:40 Chief complaint: INFECTED BED SORE Discharge Providers Provider Date of admission: 03/01/21 16:38 Primary care physician: Korey Navarro MD Consults: 03/01/21 15:36 Consult to General Surgery Stat Comment: Consulting Provider: Martinez Guzmán Reason for consultation: infection Has provider been notified: Yes 03/03/21 10:26 Consult to Speech Therapy Evaluate & Treat Comment: Coughing/choking on thin liquids Physician Instructions: Evaluate and treat 03/03/21 10:29 Consult to Hospice Referral Routine Comment: 03/04/21 08:52 Consult to Physical Therapy Evaluate & Treat Comment: Physician Instructions: Evaluate and Treat 03/04/21 10:29 Consult to Occupational Therapy Evaluate & Treat Comment: Physician Instructions: Evaluate and treat 03/04/21 16:52 Consult to Dietitian, Adult Routine Comment: Reason For Exam: nutrition consult requested Discharge provider: Manuelito Bell DO Exam Vital Signs (past 8 hours): - 03/04/21 10:14 03/04/21 12:00 Temperature 97.2 F L Pulse Rate 98 H 100 H Respiratory Rate 18 24 Blood Pressure 102/53 L Pulse Oximetry 91 94 Fraction of Inspired Oxygen 35 Oxygen Delivery Method High Flow Nasal Cannula Oxygen Flow Rate 6 Objective Labs Result Diagrams: 03/04/21 04:40 03/04/21 04:40 Labs: Laboratory Results - last 24 hr 03/04/21 03/04/21 04:40 04:40 WBC 9.5 RBC 4.24 Hgb 10.9 L Hct 34.5 L MCV 81.4 MCH 25.7 L MCHC 31.5 RDW 18.7 H Plt Count 188 Sodium 138 Potassium 3.6 Chloride 108 H Carbon Dioxide 22 BUN 39 H Creatinine 1.05 H Estimated GFR 49.8 L BUN/Creatinine Ratio 37.1 H Glucose 105 Calcium 7.5 L PFSH Medical History (Updated 03/03/21 @ 10:44 by Marcela Dobson RN) Arthritis CVA (cerebral vascular accident) Heart failure Surgical History History of hip replacement Hx of hysterectomy Hx of mastectomy Social History marital status: unknown household members: none occupational status: previously employed Smoking Status: Never smoker alcohol intake: current Discharge Plan Discharge orders & Medications Prescriptions: No Action duloxetine 20 MG capsule,delayed release(DR/EC) 40 mg PO QDAY Qty: 0 RF: 0 sotalol [Betapace] 120 MG tablet 120 mg PO BID Qty: 0 RF: 0 Eliquis 5 mg tablet 5 mg PO BID RF: 0 aspirin [Adult Aspirin Regimen] 81 mg tablet,delayed release (DR/EC) 81 mg PO DAILY RF: 0 torsemide 10 mg tablet 20 mg PO DAILY RF: 0 gabapentin 300 mg capsule 300 mg PO BID RF: 0 oxycodone 10 mg Tablet Extended Release 12 Hr 10 mg PO BID RF: 0 pantoprazole 40 mg tablet,delayed release (DR/EC) 40 mg PO DAILY RF: 0 spironolactone 25 mg Tablet 12.5 mg PO BID RF: 0 polyethylene glycol 3350 [Miralax] 17 gram/dose Powder 17 g PO DAILY RF: 0 lisinopril 2.5 mg Tablet 2.5 mg PO DAILY RF: 0 oxycodone 5 MG tablet 5 mg PO TID PRN (Reason: Pain, Moderate) RF: 0 Follow up/Referrals: Korey Navarro MD [Primary Care Provider] - Discharge Data Primary Care Provider: Korey Navarro V
--- NOTE | 2021-03-04 19:49 | P.DN_ITS ---
Discharge Summary History of Illness Narrative: Per Dr. Valdes, Ms. Magaña is an 85W with PMH of CAD s/p stent, diastolic CHF, chronic left pleural effusion, atrial fibrillation s/p PPM, aortic valve stenosis s/p TAVR now with aortic insufficiency, chronic narcotic therapy, bilateral mastectomy and hysterectomy who is coming in with infected sarcal decubitus ulcer. She initially had surgical debridement of this wound on 01/20. She was not on antibiotics. She presented to wound care with worsening pain, draining from the wound and was started on antibiotics with levofloxacin four days ago. She had cultures drawn that showed eventually resulted with multiple bacteria so was notified to come to the hospital. She thinks that her wound since starting antibiotics has somwhat improved, but overall she feels like she lacks appetite and has been weaker than her baseline. In the ED workup was done, she was noted initially to be mildly hypotensive in the 90s, no tachycardia. Labs notable for a normal white count of 9.1 with 86.6 PMNs, lactate normal. She has been on oxygen chronically and was initially on 3L in the ED. She was given clindamycin and flagyl for her wound cultures. In the ED, she did have noted episodes of hypotension with blood pressure in the 70s, she required multiple fluid boluses and consideration was done to place a central line; however blood pressure improved to the 100s and she was mentating and this was not medically necessary. She did have increasing oxygen requirement up to 6L, but when arriving on the floor this was being attempted to be weaned down. Hospital Course Date of Admission: 03/01/21 16:38 Date of : 03/04/21 Primary care provider: Korey Navarro MD Consults: 03/01/21 15:36 Consult to General Surgery Stat Comment: Consulting Provider: Martinez Guzmán Reason for consultation: infection Has provider been notified: Yes 03/03/21 10:26 Consult to Speech Therapy Evaluate & Treat Comment: Coughing/choking on thin liquids Physician Instructions: Evaluate and treat 03/03/21 10:29 Consult to Hospice Referral Routine Comment: 03/04/21 08:52 Consult to Physical Therapy Evaluate & Treat Comment: Physician Instructions: Evaluate and Treat 03/04/21 10:29 Consult to Occupational Therapy Evaluate & Treat Comment: Physician Instructions: Evaluate and treat 03/04/21 16:52 Consult to Dietitian, Adult Routine Comment: Reason For Exam: nutrition consult requested Discharge provider: Dr. Manuelito Bell Discharge Diagnosis: Please see hospital course by problem list noted below Hospital Course: Ms. Magaña is an 85W with PMH of CAD s/p stent, diastolic CHF, chronic left pleural effusion, atrial fibrillation s/p PPM, aortic valve stenosis s/p TAVR now with aortic insufficiency, chronic narcotic therapy, bilateral mastectomy and hysterectomy who was admitted with and infected sarcal decubitus ulcer. As a result of her infection she developed likely hypovolemic versus septic shock and required Levophed therapy and aggressive fluid reple tion. Given her history diastolic heart failure with them mechanical heart valve she developed worsening pulmonary edema and bilateral pleural effusions. Diuresis was being attempted however this was limited due to her hypotension, ultimately the patient opted to opt for comfort measures only therapies. Shortly after this discussion with the patient and further clarification with the patient's daughter and son, the patient , likely due to a tachyarrhythmia however this was not able to be captured with telemetry as the monitor was shut off. : 03/04/21 @ 17:40. 1. Infected stage 4 sacral ulcer, acute -patient initially hypotensive in ED -WBC ok, lactate ok, no tachycardia indicate likely patient not septic -for now will dose with clindamycin for clostridium, peptonipholus, staph aureus, ceftriaxone for enterobacter -initially did get cefazolin/zosyn but will dc given sensitivities -will change antibiotics based on patient becoming clinically stable -follow up blood cultures -appreciate surgical consultation, underwent wound debridement 03/02 - 2. Staph bacteremia, likely contaminant -in anaerobic bottle from one draw -PCR indicates possible staph epi given mecA gene -think possibly a contaminant -will order vanco 03/03 -repeat blood culture 03/03 -follow up final blood cultures 3. Hypotension, witch hypovolemic shock -likely multifactorial with overdiuresis in setting on infection, and poor oral intake -creatinine elevated on arrival, and patient on exam hypovolemic -needed low dose levophed starting night of 03/01 with MAP goal >65 -giving gentle fluid resuscitation and continuining antibiotics with goal of stopping levophed -ECHO showed preserved EF, mildly dilated RV, pulmonary hypertension, prosthetic AV with moderate aortic regurgitation -aortic regurgitation from poorly situation valve per patient, likely the cause of low diastolic pressures 3. Acute on chronic respiratory failure, on 2-3L oxygen at home, known aortic regurgitation -respiratory failure secondary to hypoxemia from chronic CHF causing chronic L pleural effusion -will need to hold diuretics and afterload medications for now given blood pressure -careful with IV fluid resuscitation -patient does not want to be intubated -no evidence of pneumonia on imaging 4. Diastolic CHF with CAD, aortic stenosis s/p TAVR with AI, atrial fibrillation s/p PPM -as above patient has pulmonary fluid, but appears dehydrated on exam -given low BP giving gentle fluid but with CHF and AI at risk of worsening pulmonary edema -restart apixaban 03/03 5. JOSÉ ANTONIO, improved -creatinine elevated to 1.84 from 0.9 on admission -with IV fluids and antibiotics improved to 1.4 -patient hypotensive, hypovolemic on exam, sodium of 129 and normalized with IV fluids -will hold torsemide -IVF as above -monitor creatinine daily -avoid nephrotoxins as able, but did order vancomycin for positive blood cultur es 6. Chronic pain -order PRN oxycodone, but careful with dose given hypotension -hold gabapentin due to JOSÉ ANTONIO 7. Coagulopathy -etiology multifactorial likely from poor nutrition and possibly infection -will monitor INR daily -no indication for reversal at this time 8. Anemia -hemoglobin of 10 on admission, decreased to 7.4 on 03/02 -in setting of hypotension will plan for transfusion -no evidence of acute bleeding currently, likely related to dilutional affect from resuscitation -monitor hemoglobin closely, recheck after transfusion 9. Hypocalcemia -likely from malnutrition and infection -ordered for calcium replacement Objective Labs Result Diagrams: 03/04/21 04:40 03/04/21 04:40 Labs: Laboratory Results - last 24 hr 03/04/21 03/04/21 04:40 04:40 WBC 9.5 RBC 4.24 Hgb 10.9 L Hct 34.5 L MCV 81.4 MCH 25.7 L MCHC 31.5 RDW 18.7 H Plt Count 188 Sodium 138 Potassium 3.6 Chloride 108 H Carbon Dioxide 22 BUN 39 H Creatinine 1.05 H Estimated GFR 49.8 L BUN/Creatinine Ratio 37.1 H Glucose 105 Calcium 7.5 L
--- NOTE | 2021-03-04 19:55 | PC.NURSE ---
Evening shift note: Pt at 1740 with family at bedside, pt was a DNR, Dr Bell at bedside and confirmed. [facility] picked up body at 1954, no further contact
--- NOTE | 2021-03-05 08:49 | CM.DPNOTE ---
Late entry. Called Kend[facility] and let her know pt. had passed. She said she will relay this message to appropriate person. Crystal Irizarry CM Asst.
--- NOTE | 2021-03-07 17:30 | PM.DDS.1 ---
Discharge Summary History of Illness Narrative: Per Dr. Valdes, Ms. Magaña is an 85W with PMH of CAD s/p stent, diastolic CHF, chronic left pleural effusion, atrial fibrillation s/p PPM, aortic valve stenosis s/p TAVR now with aortic insufficiency, chronic narcotic therapy, bilateral mastectomy and hysterectomy who is coming in with infected sarcal decubitus ulcer. She initially had surgical debridement of this wound on 01/20. She was not on antibiotics. She presented to wound care with worsening pain, draining from the wound and was started on antibiotics with levofloxacin four days ago. She had cultures drawn that showed eventually resulted with multiple bacteria so was notified to come to the hospital. She thinks that her wound since starting antibiotics has somwhat improved, but overall she feels like she lacks appetite and has been weaker than her baseline. In the ED workup was done, she was noted initially to be mildly hypotensive in the 90s, no tachycardia. Labs notable for a normal white count of 9.1 with 86.6 PMNs, lactate normal. She has been on oxygen chronically and was initially on 3L in the ED. She was given clindamycin and flagyl for her wound cultures. In the ED, she did have noted episodes of hypotension with blood pressure in the 70s, she required multiple fluid boluses and consideration was done to place a central line; however blood pressure improved to the 100s and she was mentating and this was not medically necessary. She did have increasing oxygen requirement up to 6L, but when arriving on the floor this was being attempted to be weaned down. Hospital Course Date of Admission: 03/01/21 16:38 Date of : 03/04/21 Primary care provider: Korey Navarro MD Consults: 03/01/21 15:36 Consult to General Surgery Stat Comment: Consulting Provider: Martinez Guzmán Reason for consultation: infection Has provider been notified: Yes 03/03/21 10:26 Consult to Speech Therapy Evaluate & Treat Comment: Coughing/choking on thin liquids Physician Instructions: Evaluate and treat 03/03/21 10:29 Consult to Hospice Referral Routine Comment: 03/04/21 08:52 Consult to Physical Therapy Evaluate & Treat Comment: Physician Instructions: Evaluate and Treat 03/04/21 10:29 Consult to Occupational Therapy Evaluate & Treat Comment: Physician Instructions: Evaluate and treat 03/04/21 16:52 Consult to Dietitian, Adult Routine Comment: Reason For Exam: nutrition consult requested Discharge provider: Manuelito Bell, Discharge Diagnosis: 1. Infected stage 4 sacral ulcer, acute 2. Staph bacteremia, likely contaminant 3. Hypotension, with hypovolemic shock 3. Acute on chronic respiratory failure, on 2-3L oxygen at home, known aortic regurgitation 4. Acute on chronic Diastolic CHF with CAD, aortic stenosis s/p TAVR with AI, atrial fibrillation s/p PPM 5. JOSÉ ANTONIO, improved 6. Chronic pain 7. Coagulopathy 8. Anemia 9. Hypocalcemia Hospital Course: Ms. Magaña is an 85W with PMH of CAD s/p stent, diastolic CHF, chronic left pleural effusion, atrial fibrillation s/p PPM, aortic valve stenosis s/p TAVR now with aortic insufficiency, chronic narcotic therapy, bilateral mastectomy and hysterectomy who was admitted with and infected sarcal decubitus ulcer. As a result of her infection she developed likely hypovolemic versus septic shock and required Levophed therapy and aggressive fluid repletion. Surgery was consulted for debridement. Given her history diastolic heart failure with the mechanical heart valve she developed worsening pulmonary edema and bilateral pleural effusions. Diuresis was being attempted however this was limited due to her hypotension, ultimately the patient opted to opt for comfort measures only therapies. Shortly after this discussion with the patient and further clarification with the patient's daughter and son, the patient , likely due to a tachyarrhythmia however this was not able to be captured with telemetry as the monitor was shut off. May be due to hypoxemic respiratory failure as well however not entirely clear as the patient did have a PPM at the time of her . : 03/04/21 @ 17:40. Time spent with patient and family with discussion of goals of care and medical management was >30 minutes. Objective Labs Result Diagrams: 03/04/21 04:40 03/04/21 04:40
== END 2021-03-04 19:55 | disposition expired | DRG 570 ==
LOC: ED 15:32 → AC 18:28 → ICU 03-02 07:06 → AC 03-03 12:25
PROVIDERS: Surgery; Admitting Provider Internal Medicine; Emergency Provider Emergency Medicine; Family Provider Internal Medicine; PCP Internal Medicine; Referring Provider Emergency Medicine; Visit Provider Internal Medicine
DX: L89.154 Pressure ulcer of sacral region, stage 4 (principal); J96.21 Acute and chronic respiratory failure with hypoxia; I50.32 Chronic diastolic (congestive) heart failure; N17.9 Acute kidney failure, unspecified; J90 Pleural effusion, not elsewhere classified; D68.9 Coagulation defect, unspecified; E46 Unspecified protein-calorie malnutrition; R57.1 Hypovolemic shock; D64.9 Anemia, unspecified; E83.51 Hypocalcemia; Z95.0 Presence of cardiac pacemaker; I35.1 Nonrheumatic aortic (valve) insufficiency; Z95.2 Presence of prosthetic heart valve; G89.29 Other chronic pain; Z68.20 Body mass index [BMI] 20.0-20.9, adult; Z20.822 Contact with and (suspected) exposure to COVID-19; I48.91 Unspecified atrial fibrillation
CPT/HCPCS: 36415; 36430; 36569; 36592; 36600; 71045; 80048; 80053; 82805; 83605; 83690; 83880; 84145; 85025; 85027; 85610; 85730; 86850; 86870; 86900; 86901; 86902; 87040; 87070; 87075; 87077; 87147; 87150; 87186; 87205; 87635; 87797; 92610; 93005; 93306; 94762; 96365; 96368; 99285; C9803; P9016; J0610; J0690; J1940; J2270; J2405; J2543; J2704; J3010